=== PATIENT | female | born 1975 | race Two or more races ===

== ENCOUNTER 2019-03-24 17:02 | Emergency (ER) | payer MEDICAID ==
[~2019-03-24] VITALS: Ht 144.8 cm; Wt 68.0 kg
[2019-03-24 17:23] VITALS: BP 146/80
--- NOTE | 2019-03-24 17:25 | NUR ---
ED Nurse Note: Patient walked in to ER c/o left side of forehead skin abscess x 7 days. Pt denies injury or trauma. Pt rates pain at 7/10. Patient presen SAGAR sales x4, VSS at this time.
--- NOTE | 2019-03-24 17:28 | Emergency Room Report ---
History of Present Illness General Chief Complaint: Skin Rash/Abscess Source: Patient Present Illness HPI 44-year-old female with no significant past medical history here complaining of having few cysts on scalp for few days. Complains of pain in the side rating a 5-10. Denies any pus drainage. History of prediabetes uncontrolled. Denies any fall or injury. Multiple folliculitis noted on scalp and forehead. Denies fever and chills, nausea vomiting. Has not taken medication for symptom relief. Denies at this time. Allergies: Coded Allergies: No Known Allergies (Unverified , 03/24/19) Patient History Past Medical History: see triage record Past Surgical History: none Pertinent Family History: none Last Menstrual Period: 03/21/2019 Now: No Immunizations: UTD Reviewed Nursing Documentation: PMH: Agreed; PSxH: Agreed Nursing Documentation-PMH Past Medical History: No Stated History Review of Systems All Other Systems: negative except mentioned in HPI Physical Exam Vital Signs Date Time Temp Pulse Resp B/P (MAP) Pulse Ox O2 Delivery O2 Flow Rate FiO2 03/24/19 17:11 97.7 88 15 146/80 (102) 100 Room Air Sp02 EP Interpretation: reviewed, normal General Appearance: no apparent distress, alert, GCS 15, non-toxic Head: normocephalic, atraumatic Eyes: bilateral eye normal inspection, bilateral eye PERRL ENT: hearing grossly normal, normal pharynx, no angioedema, normal voice Neck: full range of motion, supple/symm/no masses Respiratory: chest non-tender, lungs clear, normal breath sounds, no rhonchi, no retraction, no wheezing, speaking full sentences Cardiovascular #1: normal inspection, no edema, no murmur Gastrointestinal: non tender, soft, no mass, no peritonitis, no bruit Rectal: deferred Genitourinary: no CVA tenderness Musculoskeletal: back normal Neurologic: alert, motor strength/tone normal, oriented x3, sensory intact, responsive, speech normal Psychiatric: judgement/insight normal, memory normal, mood/affect normal, no suicidal/homicidal ideation Skin: other - Multiple folliculitis scalp and forehead Lymphatic: normal inspection, no adenopathy Medical Decision Making PA Attestation All diagnoses and treatment plans were reviewed and discussed with my supervising physician Dr. Acosta Diagnostic Impression: Primary Impression: Folliculitis ER Course 44-year-old female with no significant past medical history here complaining of having few cysts on scalp for few days. Complains of pain in the side rating a 5-10. Denies any pus drainage. History of prediabetes uncontrolled. Denies any fall or injury. Multiple folliculitis noted on scalp and forehead. Denies fever and chills, nausea vomiting. Has not taken medication for symptom relief. Denies at this time. Ddx considered but are not limited to : Cellulitis, folliculitis, superficial infection, abscess Vital signs: are WNL, pt. is afebrile H&PE are most consistent with: folliculitis with no abscess formation ORDERS: Keflex, Motrin ED INTERVENTIONS: None required at this time. DISCHARGE: At this time pt. is stable for d/c to home. Will provide printed patient care instructions, and any necessary prescriptions. Care plan and follow up instructions have been discussed with the patient prior to discharge. No I&D needed as patient has not developed any abscess. Follow-up with primary care provider, take medication as directed, worsening symptoms return to emergency room. Patient reports that she often shaves the areas that she gets a folliculitis advised her not to do so. Last Vital Signs Date Time Temp Pulse Resp B/P (MAP) Pulse Ox O2 Delivery O2 Flow Rate FiO2 03/24/19 17:11 97.7 88 15 146/80 (102) 100 Room Air Disposition: HOME, SELF-CARE Condition: Stable Scripts Ibuprofen* (MOTRIN*) 600 Mg Tablet 600 MG ORAL Q8H PRN for For Pain, #30 TAB 0 Refills Prov: Yamileth Khan 03/24/19 Cephalexin* (KEFLEX*) 500 Mg Capsule 500 MG ORAL EVERY 6 HOURS for 7 Days, #28 CAP Prov: Yamileth Khan 03/24/19 Patient Instructions: Folliculitis Additional Instructions: Take medication as directed, follow-up with your primary care provider, may need to be sent to a manager transfer to be requested by your primary care provider. If worsening symptoms return to the emergency room Yamileth Khan Mar 24, 2019 17:28
[2019-03-24] MEDS ORDERED: CEPHALEXIN500 MG ORAL (17:30)
[2019-03-24] MEDS ORDERED: IBUPROFEN600 MG ORAL (17:30)
[2019-03-24 17:34] VITALS: BP 146/80
--- NOTE | 2019-03-24 17:36 | NUR ---
ED Nurse Note: Pt cleared by health care Provider for discharge. DC instructions/prescription was given and explained to pt and verbalized understanding of teachings. All medical deviecs such as ID band removed. Pt is AAO x4, ambulatory and left with all personal belongings.
== END 2019-03-24 17:34 | disposition home or self-care (01) ==
LOC: EMR 17:28
DX: L73.9 Follicular disorder, unspecified (principal)
CPT/HCPCS: 99282

== ENCOUNTER 2019-04-20 06:16 | Inpatient (IN) | payer MEDICAID ==
[~2019-04-20] VITALS: Ht 149.9 cm; Wt 71.7 kg
[~2019-04-20 06:16] MED LIST: CEPHALEXIN500 MG ORAL; IBUPROFEN600 MG ORAL
--- NOTE | 2019-04-20 06:54 | NUR ---
ED Nurse Note: Walk-in Patient with complaints of fever x 3 days and body pain. Patient administered tylenol. Will continue to monitor.
--- NOTE | 2019-04-20 06:57 | NUR ---
HAND-OFF: Report given to Mendoza SUACEDA.
--- NOTE | 2019-04-20 07:03 | Emergency Room Report ---
History of Present Illness General Chief Complaint: Fever Source: Patient Present Illness HPI Patient presents with complaints of sensation of fever Ongoing for the past 1 day patient also has body ache diffusely Denies any headache denies any posterior neck pain denies any sore throat denies any chest pain denies any vomiting or diarrhea denies any recent travel Patient has not taken any medications as of yet COVID-19 risk:Travel to affect: No Has patient experienced cooper: No Allergies: Coded Allergies: No Known Allergies (Unverified , 04/20/19) Patient History Past Medical History: see triage record Reviewed Nursing Documentation: PMH: Agreed; PSxH: Agreed Nursing Documentation-PMH Past Medical History: No Stated History Review of Systems All Other Systems: negative except mentioned in HPI Physical Exam Vital Signs Date Time Temp Pulse Resp B/P (MAP) Pulse Ox O2 Delivery O2 Flow Rate FiO2 04/20/19 06:33 100.8 120 16 125/60 (81) 95 Room Air Sp02 EP Interpretation: reviewed, normal General Appearance: well appearing, no apparent distress Head: normocephalic, atraumatic Eyes: bilateral eye PERRL, bilateral eye EOMI ENT: hearing grossly normal, normal pharynx, TMs + canals normal, uvula midline Neck: full range of motion, supple, no meningismus, no bony tend Respiratory: lungs clear, normal breath sounds, no rhonchi, no respiratory distress, no retraction, no accessory muscle use Cardiovascular #1: normal peripheral pulses, regular rate, rhythm, no edema, no gallop, no JVD, no murmur Gastrointestinal: normal bowel sounds, non tender, soft, no mass, no organomegaly, non-distended, no guarding, no hernia, no pulsatile mass, no rebound Genitourinary: no CVA tenderness Musculoskeletal: normal inspection Neurologic: motor strength/tone normal, fagoter III-XII nml as tested, oriented x3 , sensory intact, responsive Psychiatric: mood/affect normal Skin: no rash Lymphatic: normal inspection, no adenopathy Medical Decision Making Diagnostic Impression: Primary Impression: Pyelonephritis ER Course Multiple differentials including but not limited to pyelonephritis cholecystitis meningitis,, entertained Patient's white blood cell count is significantly elevated patient initially Denies any dysuria or frequency however urine sample shows significant amount of white blood cells CT imaging also confirms evidence of pyelonephritis patient receiving IV hydration antibiotics and admission for further care Labs Test 04/20/19 07:25 04/20/19 08:27 04/20/19 08:40 White Blood Count 26.5 K/UL (4.8-10.8) Red Blood Count 4.46 M/UL (4.20-5.40) Hemoglobin 7.4 G/DL (12.0-16.0) Hematocrit 25.3 % (37.0-47.0) Mean Corpuscular Volume 57 FL (80-99) Mean Corpuscular Hemoglobin 16.6 PG (27.0-31.0) Mean Corpuscular Hemoglobin Concent 29.2 G/DL (32.0-36.0) Red Cell Distribution Width 15.4 % (11.6-14.8) Platelet Count 328 K/UL (150-450) Mean Platelet Volume 6.0 FL (6.5-10.1) Neutrophils (%) (Auto) % (45.0-75.0) Lymphocytes (%) (Auto) % (20.0-45.0) Monocytes (%) (Auto) % (1.0-10.0) Eosinophils (%) (Auto) % (0.0-3.0) Basophils (%) (Auto) % (0.0-2.0) Differential Total Cells Counted 100 Neutrophils % (Manual) 86 % (45-75) Lymphocytes % (Manual) 9 % (20-45) Monocytes % (Manual) 5 % (1-10) Eosinophils % (Manual) 0 % (0-3) Basophils % (Manual) 0 % (0-2) Band Neutrophils 0 % (0-8) Platelet Estimate Adequate Platelet Morphology Normal Polychromasia 1+ Hypochromasia 2+ Anisocytosis 1+ Microcytosis 2+ Sodium Level 136 MMOL/L (136-145) Potassium Level 3.2 MMOL/L (3.5-5.1) Chloride Level 101 MMOL/L (98-107) Carbon Dioxide Level 24 MMOL/L (21-32) Anion Gap 11 mmol/L (5-15) Blood Urea Nitrogen 7 mg/dL (7-18) Creatinine 0.7 MG/DL (0.55-1.30) Estimat Glomerular Filtration Rate > 60 mL/min (>60) Glucose Level 214 MG/DL (74-106) Calcium Level 8.1 MG/DL (8.5-10.1) Total Bilirubin 0.4 MG/DL (0.2-1.0) Aspartate Amino Transf (AST/SGOT) 19 U/L (15-37) Alanine Aminotransferase (ALT/SGPT) 23 U/L (12-78) Alkaline Phosphatase 117 U/L (46-116) Total Protein 7.4 G/DL (6.4-8.2) Albumin 3.0 G/DL (3.4-5.0) Globulin 4.4 g/dL Albumin/Globulin Ratio 0.7 (1.0-2.7) Urine Color Yellow Urine Appearance Slightly cloudy Urine pH 6 (4.5-8.0) Urine Specific [place] 1.015 (1.005-1.035) Urine Protein 3+ (NEGATIVE) Urine Glucose (UA) 1+ (NEGATIVE) Urine Ketones 4+ (NEGATIVE) Urine Blood 5+ (NEGATIVE) Urine Nitrite Positive (NEGATIVE) Urine Bilirubin Negative (NEGATIVE) Urine Urobilinogen 1 MG/DL (0.0-1.0) Urine Leukocyte Esterase 3+ (NEGATIVE) Urine RBC 5-10 /HPF (0 - 2) Urine WBC Tntc /HPF (0 - 2) Urine Squamous Epithelial Cells Few /LPF (NONE/OCC) Urine Bacteria Moderate /HPF (NONE) Urine Opiates Screen Negative (NEGATIVE) Urine Barbiturates Screen Negative (NEGATIVE) Phencyclidine (PCP) Screen Negative (NEGATIVE) Urine Amphetamines Screen Negative (NEGATIVE) Urine Benzodiazepines Screen Negative (NEGATIVE) Urine Cocaine Screen Negative (NEGATIVE) Urine Marijuana (THC) Screen Negative (NEGATIVE) Lactic Acid Level 1.00 mmol/L (0.4-2.0) Troponin I 0.000 ng/mL (0.000-0.056) Rhythm Strip Diag. Results EP Interpretation: yes Rate: 110 Rhythm: no PVC's, no ectopy, other - Sinus tack Chest X-Ray Diagnostic Results Chest X-Ray Diagnostic Results : Chest X-Ray Ordered: Yes # of Views/Limited/Complete: 1 View Indication: Chest Pain EP Interpretation: Yes Interpretation: no consolidation, no effusion, no pneumothorax Impression: No acute disease Electronically Signed by: Ketan David, DO CT/MRI/US Diagnostic Results CT/MRI/US Diagnostic Results : Impression CT abdomen pelvisIMPRESSION: Abnormal left kidney. Pyelonephritis suspected. Correlate clinically. Minimal left basal atelectasis. Last Vital Signs Date Time Temp Pulse Resp B/P (MAP) Pulse Ox O2 Delivery O2 Flow Rate FiO2 04/20/19 06:33 100.8 120 16 125/60 (81) 95 Room Air Status: improved Disposition: ADMITTED INPATIENT Condition: Serious Referrals: NOT CHOSEN IPA/,REFERRING (PCP) Ketan David DO Apr 20, 2019 07:03
[2019-04-20 07:10] VITALS: BP 125/60
[2019-04-20 07:38] LABS: HEMATOCRIT 25.3 % (37.0-47.0); HEMOGLOBIN 7.4 G/DL (12.0-16.0); MEAN CORPUSCULAR VOLUME 57 FL (80-99); PLATELET COUNT 328 K/UL (150-450); RED BLOOD COUNT 4.46 M/UL (4.20-5.40); RED CELL DISTRIBUTION WIDTH 15.4 % (11.6-14.8)
[2019-04-20 07:46] LABS: WHITE BLOOD COUNT 26.5 K/UL (4.8-10.8)
[2019-04-20 07:50] LABS: ANION GAP 11 mmol/L (5-15); BLOOD UREA NITROGEN 7 mg/dL (7-18); CALCIUM 8.1 MG/DL (8.5-10.1); CARBON DIOXIDE 24 MMOL/L (21-32); CHLORIDE 101 MMOL/L (98-107); CREATININE 0.7 MG/DL (0.55-1.30); POTASSIUM 3.2 MMOL/L (3.5-5.1); SODIUM 136 MMOL/L (136-145)
[2019-04-20 07:55] LABS: ALANINE AMINOTRANSFERASE 23 U/L (12-78); ALBUMIN/GLOBULIN RATIO 0.7 (1.0-2.7); ALKALINE PHOSPHATASE 117 U/L (46-116); ASPARTATE AMINO TRANSFERASE 19 U/L (15-37); BILIRUBIN,TOTAL 0.4 MG/DL (0.2-1.0)
[2019-04-20] MEDS ORDERED: Omnipaque-300 100ml vial INJ PRN (08:00)
[2019-04-20] MEDS ORDERED: Sodium Chloride 2,200 ML IVLG ONE (08:00)
--- NOTE | 2019-04-20 08:20 | NUR ---
ED Nurse Note: Patient taken to CT
--- NOTE | 2019-04-20 08:20 | NUR ---
Sherine nixon in EDM - 04/20/19 at 0911 by MATEUS ED Nurse Note: Patient taken to Xray
[2019-04-20 08:37] LABS: APPEARANCE,URINE SLIGHTLY CLOUDY; BILIRUBIN, URINE NEGATIVE (NEGATIVE); GLUCOSE, URINE (UA) 1+ (NEGATIVE); KETONES,URINE 4+ (NEGATIVE); LEUKOCYTE ESTERASE ,URINE 3+ (NEGATIVE); NITRITE,URINE POSITIVE (NEGATIVE); PH,URINE 6 (4.5-8.0); PROTEIN,URINE 3+ (NEGATIVE); UROBILINOGEN,URINE 1 MG/DL (0.0-1.0)
[2019-04-20 08:45] LABS: COLOR,URINE YELLOW
--- NOTE | 2019-04-20 08:45 | NUR ---
ED Nurse Note: Blood sent to lab, patient resting in bed, at bedside.
--- NOTE | 2019-04-20 08:50 | NUR ---
ED Nurse Note: Patient returned from CT
[2019-04-20] MEDS ORDERED: cefTRIAXone 1 GM in NS 55 ML IVPB ONE (09:15)
[2019-04-20 09:30] VITALS: BP 123/61
--- NOTE | 2019-04-20 09:31 | Diagnostic Imaging Report ---
INDICATION: Abdominal pain TECHNIQUE: Continuous helical transaxial imaging of the abdomen and pelvis was obtained from the lung bases to the pubic symphysis during intravenous contrast administration. Coronal 2-D reformats were also obtained. Study obtained in a Siemens sensation [address] Automatic Exposure Control was utilized. Total Dose length Product (DLP): 619.[address] Dose Index Volume (CTDIvol): 12 mGy COMPARISON: None FINDINGS: Lungs: There is minimal left posterior basal atelectasis.. Liver: Unremarkable Gallbladder/biliary system: No gallstones are identified. There is no evidence of intrahepatic or extrahepatic biliary ductal dilatation. Spleen: Unremarkable Pancreas: Unremarkable Kidneys/Bladder: There is left perinephric stranding and slight ill-definition of the left kidney parameter. There is no abscess but findings are likely due to pyelonephritis. There is no evidence of hydronephrosis or obstruction. There is no stone identified within the kidney or collecting system. The urinary bladder is completely nondistended. Right kidney is unremarkable.. Adrenal glands: Unremarkable Aorta/IVC: There is no aortic aneurysm. There is a retroaortic left renal vein noted. Bowel: Appendix is normal. Bowel gas pattern is normal. There is no evidence of bowel obstruction. Peritoneum: There is no free fluid. Bones: Vacuum phenomena and, loss of height of the L5-S1 disc noted with vertebral endplate and facet arthropathy. IMPRESSION: Abnormal left kidney. Pyelonephritis suspected. Correlate clinically. Minimal left basal atelectasis. The CT scanner at [facility] is accredited by the [employer] and the scans are performed using dose optimization techniques as appropriate to a performed exam including Automatic Exposure control.
[2019-04-20 10:20] LABS: CKMB < 0.5 NG/ML (0.0-3.6); CREATINE KINASE 28 U/L (26-308)
--- NOTE | 2019-04-20 10:22 | History and Physical ---
History of Present Illness General Date patient seen: Apr 20, 2019 Time patient seen: 10:10 Reason for Hospitalization: Pyelonephritis, sepsis Present Illness HPI 44 year old woman with obesity otherwise healthy who comes in with 3 days of subjective fever and low back pain. No chest pain, cough, dyspnea, sore throat. Deneis hematuria or dysuria. In ED noted to have fever 100.8 and leukocytosis 26K with left shift. CT A/P suggestive of pyelonephritis. Given ceftriaxone and referred for admission FHx: No premature CAD SHx: No alcohol or tobacco Allergies: Coded Allergies: No Known Allergies (Unverified , 04/20/19) Medication History Scheduled Cephalexin* (Keflex*), 500 MG ORAL EVERY 6 HOURS Scheduled PRN Ibuprofen* (Motrin*), 600 MG ORAL Q8H PRN for For Pain Patient History Healthcare decision maker Resuscitation status Advanced Directive on File Review of Systems Constitutional: Reports: fever Eye: Denies: blurred vision ENT: Denies: nose congestion, throat pain Respiratory: Denies: cough, orthopnea, shortness of breath Cardiovascular: Denies: chest pain, edema, palpitations Gastrointestinal: Denies: abdominal pain, constipation, diarrhea Genitourinary: Denies: dysuria, frequency, hematuria Musculoskeletal: Reports: back pain; Denies: joint pain Skin: Denies: rash, change in color Neurological: Denies: headache Endocrine: Denies: excessive sweating Physical Exam General Appearance: no apparent distress, alert HEENT: atraumatic, anicteric, mucous membranes moist Neck: normal alignment, supple, normal inspection Respiratory/Chest: lungs clear, normal breath sounds, no respiratory distress Cardiovascular/Chest: normal rate, regular rhythm Abdomen: non tender, soft Genitourinary/Rectal: other - Right CVAT Extremities: non-tender, normal inspection Neurologic: ship officer II-XII grossly normal, no motor/sensory deficits, alert, oriented x 3 Last 24 Hour Vital Signs Date Time Temp Pulse Resp B/P (MAP) Pulse Ox O2 Delivery O2 Flow Rate FiO2 04/20/19 07:21 100.8 04/20/19 07:10 100.8 108 16 125/60 95 Room Air 04/20/19 07:10 108 16 Room Air 04/20/19 06:33 100.8 120 16 125/60 (81) 95 Room Air Laboratory Tests Test 04/20/19 07:25 04/20/19 08:27 04/20/19 08:40 White Blood Count 26.5 K/UL (4.8-10.8) *H Red Blood Count 4.46 M/UL (4.20-5.40) Hemoglobin 7.4 G/DL (12.0-16.0) L Hematocrit 25.3 % (37.0-47.0) L Mean Corpuscular Volume 57 FL (80-99) L Mean Corpuscular Hemoglobin 16.6 PG (27.0-31.0) L Mean Corpuscular Hemoglobin Concent 29.2 G/DL (32.0-36.0) L Red Cell Distribution Width 15.4 % (11.6-14.8) H Platelet Count 328 K/UL (150-450) Mean Platelet Volume 6.0 FL (6.5-10.1) L Neutrophils (%) (Auto) % (45.0-75.0) Lymphocytes (%) (Auto) % (20.0-45.0) Monocytes (%) (Auto) % (1.0-10.0) Eosinophils (%) (Auto) % (0.0-3.0) Basophils (%) (Auto) % (0.0-2.0) Differential Total Cells Counted 100 Neutrophils % (Manual) 86 % (45-75) H Lymphocytes % (Manual) 9 % (20-45) L Monocytes % (Manual) 5 % (1-10) Eosinophils % (Manual) 0 % (0-3) Basophils % (Manual) 0 % (0-2) Band Neutrophils 0 % (0-8) Platelet Estimate Adequate Platelet Morphology Normal Polychromasia 1+ Hypochromasia 2+ Anisocytosis 1+ Microcytosis 2+ Sodium Level 136 MMOL/L (136-145) Potassium Level 3.2 MMOL/L (3.5-5.1) L Chloride Level 101 MMOL/L (98-107) Carbon Dioxide Level 24 MMOL/L (21-32) Anion Gap 11 mmol/L (5-15) Blood Urea Nitrogen 7 mg/dL (7-18) Creatinine 0.7 MG/DL (0.55-1.30) Estimat Glomerular Filtration Rate > 60 mL/min (>60) Glucose Level 214 MG/DL (74-106) H Calcium Level 8.1 MG/DL (8.5-10.1) L Total Bilirubin 0.4 MG/DL (0.2-1.0) Aspartate Amino Transf (AST/SGOT) 19 U/L (15-37) Alanine Aminotransferase (ALT/SGPT) 23 U/L (12-78) Alkaline Phosphatase 117 U/L (46-116) H Total Protein 7.4 G/DL (6.4-8.2) Albumin 3.0 G/DL (3.4-5.0) L Globulin 4.4 g/dL Albumin/Globulin Ratio 0.7 (1.0-2.7) L Urine Color Yellow Urine Appearance Slightly cloudy Urine pH 6 (4.5-8.0) Urine Specific [place] 1.015 (1.005-1.035) Urine Protein 3+ (NEGATIVE) H Urine Glucose (UA) 1+ (NEGATIVE) H Urine Ketones 4+ (NEGATIVE) H Urine Blood 5+ (NEGATIVE) H Urine Nitrite Positive (NEGATIVE) H Urine Bilirubin Negative (NEGATIVE) Urine Urobilinogen 1 MG/DL (0.0-1.0) H Urine Leukocyte Esterase 3+ (NEGATIVE) H Urine RBC 5-10 /HPF (0 - 2) H Urine WBC Tntc /HPF (0 - 2) H Urine Squamous Epithelial Cells Few /LPF (NONE/OCC) Urine Bacteria Moderate /HPF (NONE) H Urine Opiates Screen Negative (NEGATIVE) Urine Barbiturates Screen Negative (NEGATIVE) Phencyclidine (PCP) Screen Negative (NEGATIVE) Urine Amphetamines Screen Negative (NEGATIVE) Urine Benzodiazepines Screen Negative (NEGATIVE) Urine Cocaine Screen Negative (NEGATIVE) Urine Marijuana (THC) Screen Negative (NEGATIVE) Lactic Acid Level 1.00 mmol/L (0.4-2.0) Total Creatine Kinase Pending Creatine Kinase MB Pending Troponin I 0.000 ng/mL (0.000-0.056) Lipase Pending Height (Feet): 4 Height (Inches): 11.00 Weight (Pounds): 158 Medications Current Medications Medications (Trade) Dose Ordered Sig/Aguilar Route PRN Reason Start Time Stop Time Status Last Admin Dose Admin Iohexol (OMNIPAQUE-300 100ml) 100 ml NOW PRN INJ Radiology Procedure 04/20/19 08:00 04/22/19 07:54 Assessment/Plan Assessment/Plan: 44 year old woman with obesity who presented with 3 days of fever and back pain #Sepsis #Right sided pyelonephritis -admit to medical service -start ceftriaxone 1 g q24h -Tylenol prn for fever -IV Dilaudid prn for pain -follow up blood and urine cultures -repeat CBC in AM #Obesity I spent 70 minutes on this patient's case, and >50% was dedicated to counseling and/or care coordination. Serge Fitzpatrick MD Apr 20, 2019 10:22
[2019-04-20] MEDS ORDERED: HYDROmorphone 1mg/ml Carpuject IVP PRN (10:30)
[2019-04-20] MEDS ORDERED: Hydromorphone 0.5mg/0.5ml inj IVP PRN (10:30)
[2019-04-20] MEDS ORDERED: DiphenhydrAMINE 25mg Tab ORAL PRN (10:30)
[2019-04-20] MEDS ORDERED: Mylanta II UD 30ml ORAL PRN (10:30)
[2019-04-20 11:30] VITALS: BP 124/65
--- NOTE | 2019-04-20 11:30 | NUR ---
ED Nurse Note: Report given to Ayala SAUCEDA
--- NOTE | 2019-04-20 11:39 | Diagnostic Imaging Report ---
Indication: Dyspnea Comparison: None A single view chest radiograph was obtained. Findings: Cardiomediastinal appearance is within normal limits for age. The lungs are clear. Pulmonary vascularity is appropriate. The diaphragmatic contour is smooth and costophrenic angles are sharp. No pleural effusions are identified. The bones are unremarkable. Impression: No acute findings
--- NOTE | 2019-04-20 11:45 | NUR ---
NURSE NOTES: Patient received from ER at 1145, via gurney to 319-1, in stable condition. Patient AOx4, Sami speaking female, calm, no distress on RA. Non-productive cough noted. LAC heplock intact, blood in tubing, will flush and start ordered IVF. Oriented patient to room and call light for safety. Spouse at bedside. Belongings reviewed and signed. Bed in lowest position, call light in reach, will continue to monitor.
[2019-04-20 12:00] VITALS: BP 145/97
--- NOTE | 2019-04-20 14:15 | NUR ---
NURSE NOTES: Messaged left for Dr. Maynard, regarding K3.2. Eileen ROSA notified of awaiting process control board operator back.
[2019-04-20 16:00] VITALS: BP 140/68
--- NOTE | 2019-04-20 18:00 | NUR ---
NURSE NOTES: Dr. Desouza notified of temperature 102.9. (see vitals for all temperature readings) Tylenol administered x2, see eMAR. Encouraged patient to increase PO fluid intake. IVF infusing as ordered. No NV. Ice pack to head and chest applied. Will continue to monitor.
--- NOTE | 2019-04-20 19:45 | NUR ---
HAND-OFF: Report given to Jorden SAUCEDA, rounds made. Endorsed still awaiting honing machine operator production back from Dr. Maynard regarding K3.2. Eileen ROSA and Simon ROSA aware as well.
--- NOTE | 2019-04-20 19:47 | NUR ---
NURSE NOTES: Received report from Rossy SAUCEDA. Rounding is done. Patient is a/o x4, in bed, and able to known her need. is at bedside. Patient c/o pain 5/10, and will give medication as ordered. Breathing is even and unlabored. IV site is intact and iv fluid is running. Bed is on alarm, locked, and lowest position. Call light within reach. Will continue to monitor.
[2019-04-20 20:00] VITALS: BP 128/68
[2019-04-20] MEDS ORDERED: Amikacin Rx to dose MISC PRN (20:00)
--- NOTE | 2019-04-20 20:08 | Infectious Diseases Prog Note ---
Assessment/Plan Assessment/Plan Full consult dictated: A) 1) uti/pyelonephritis 2) sepsis, fevers, leukocytosis 3) obesity 4) allergies - nkda P) 1) zosyn and amikacin 2) check cultures 3) monitor labs and temps 4) will f/u 5) thank you Subjective Allergies: Coded Allergies: No Known Allergies (Unverified , 04/20/19) Objective Vital Signs Last 24 Hour Vital Signs Date Time Temp Pulse Resp B/P (MAP) Pulse Ox O2 Delivery O2 Flow Rate FiO2 04/20/19 18:07 102.9 04/20/19 18:00 102.9 04/20/19 17:15 102.5 04/20/19 16:00 102.2 100 24 140/68 (92) 94 04/20/19 13:15 102.8 04/20/19 12:02 Room Air 04/20/19 12:00 101.2 109 22 145/97 (113) 04/20/19 11:40 99.6 99 16 124/65 97 Room Air 04/20/19 11:30 99.6 99 16 124/65 97 Room Air 04/20/19 09:30 100.1 104 17 123/61 98 Room Air 04/20/19 07:21 100.8 04/20/19 07:10 100.8 108 16 125/60 95 Room Air 04/20/19 07:10 108 16 Room Air 04/20/19 06:33 100.8 120 16 125/60 (81) 95 Room Air Height (Feet): 4 Height (Inches): 11.00 Weight (Pounds): 158 Laboratory Tests Test 04/20/19 07:25 04/20/19 08:27 04/20/19 08:40 White Blood Count 26.5 K/UL (4.8-10.8) *H Red Blood Count 4.46 M/UL (4.20-5.40) Hemoglobin 7.4 G/DL (12.0-16.0) L Hematocrit 25.3 % (37.0-47.0) L Mean Corpuscular Volume 57 FL (80-99) L Mean Corpuscular Hemoglobin 16.6 PG (27.0-31.0) L Mean Corpuscular Hemoglobin Concent 29.2 G/DL (32.0-36.0) L Red Cell Distribution Width 15.4 % (11.6-14.8) H Platelet Count 328 K/UL (150-450) Mean Platelet Volume 6.0 FL (6.5-10.1) L Neutrophils (%) (Auto) % (45.0-75.0) Lymphocytes (%) (Auto) % (20.0-45.0) Monocytes (%) (Auto) % (1.0-10.0) Eosinophils (%) (Auto) % (0.0-3.0) Basophils (%) (Auto) % (0.0-2.0) Differential Total Cells Counted 100 Neutrophils % (Manual) 86 % (45-75) H Lymphocytes % (Manual) 9 % (20-45) L Monocytes % (Manual) 5 % (1-10) Eosinophils % (Manual) 0 % (0-3) Basophils % (Manual) 0 % (0-2) Band Neutrophils 0 % (0-8) Platelet Estimate Adequate Platelet Morphology Normal Polychromasia 1+ Hypochromasia 2+ Anisocytosis 1+ Microcytosis 2+ Sodium Level 136 MMOL/L (136-145) Potassium Level 3.2 MMOL/L (3.5-5.1) L Chloride Level 101 MMOL/L (98-107) Carbon Dioxide Level 24 MMOL/L (21-32) Anion Gap 11 mmol/L (5-15) Blood Urea Nitrogen 7 mg/dL (7-18) Creatinine 0.7 MG/DL (0.55-1.30) Estimat Glomerular Filtration Rate > 60 mL/min (>60) Glucose Level 214 MG/DL (74-106) H Calcium Level 8.1 MG/DL (8.5-10.1) L Total Bilirubin 0.4 MG/DL (0.2-1.0) Aspartate Amino Transf (AST/SGOT) 19 U/L (15-37) Alanine Aminotransferase (ALT/SGPT) 23 U/L (12-78) Alkaline Phosphatase 117 U/L (46-116) H Total Protein 7.4 G/DL (6.4-8.2) Albumin 3.0 G/DL (3.4-5.0) L Globulin 4.4 g/dL Albumin/Globulin Ratio 0.7 (1.0-2.7) L Urine Color Yellow Urine Appearance Slightly cloudy Urine pH 6 (4.5-8.0) Urine Specific [place] 1.015 (1.005-1.035) Urine Protein 3+ (NEGATIVE) H Urine Glucose (UA) 1+ (NEGATIVE) H Urine Ketones 4+ (NEGATIVE) H Urine Blood 5+ (NEGATIVE) H Urine Nitrite Positive (NEGATIVE) H Urine Bilirubin Negative (NEGATIVE) Urine Urobilinogen 1 MG/DL (0.0-1.0) H Urine Leukocyte Esterase 3+ (NEGATIVE) H Urine RBC 5-10 /HPF (0 - 2) H Urine WBC Tntc /HPF (0 - 2) H Urine Squamous Epithelial Cells Few /LPF (NONE/OCC) Urine Bacteria Moderate /HPF (NONE) H Urine Opiates Screen Negative (NEGATIVE) Urine Barbiturates Screen Negative (NEGATIVE) Phencyclidine (PCP) Screen Negative (NEGATIVE) Urine Amphetamines Screen Negative (NEGATIVE) Urine Benzodiazepines Screen Negative (NEGATIVE) Urine Cocaine Screen Negative (NEGATIVE) Urine Marijuana (THC) Screen Negative (NEGATIVE) Lactic Acid Level 1.00 mmol/L (0.4-2.0) Total Creatine Kinase 28 U/L (26-308) Creatine Kinase MB < 0.5 NG/ML (0.0-3.6) Creatine Kinase MB Relative Index Troponin I 0.000 ng/mL (0.000-0.056) Lipase 62 U/L (73-393) L Current Medications Medications (Trade) Dose Ordered Sig/Aguilar Route PRN Reason Start Time Stop Time Status Last Admin Dose Admin Acetaminophen (Tylenol) 650 mg Q4H PRN ORAL fever 04/20/19 10:30 05/20/19 10:29 04/20/19 17:30 Al Hydroxide/Mg Hydroxide (Mylanta II) 30 ml Q6H PRN ORAL dyspepsia 04/20/19 10:30 05/20/19 10:29 Ceftriaxone Sodium 1 gm/ Sodium Chloride 55 ml @ 110 mls/hr Q24HRS IVPB 04/21/19 10:00 04/28/19 09:59 Dextrose (Dextrose 50%) 25 ml Q30M PRN IV Hypoglycemia 04/20/19 10:30 05/20/19 10:29 Dextrose (Dextrose 50%) 50 ml Q30M PRN IV Hypoglycemia 04/20/19 10:30 05/20/19 10:29 Diphenhydramine HCl (Benadryl) 25 mg Q6H PRN ORAL Itching/Pruritis 04/20/19 10:30 05/20/19 10:29 Docusate Sodium (Colace) 100 mg EVERY 12 HOURS ORAL 04/20/19 21:00 05/20/19 20:59 Heparin Sodium (Porcine) (Heparin 5000 units/ml) 5,000 units EVERY 12 HOURS SUBQ 04/20/19 21:00 06/04/19 20:59 Hydromorphone HCl (Dilaudid) 0.5 mg Q4H PRN IVP Moderate Pain (Pain Scale 4-6) 04/20/19 10:30 04/27/19 10:29 Hydromorphone HCl (Dilaudid) 1 mg Q4H PRN IVP Severe Pain (Pain Scale 7-10) 04/20/19 10:30 04/27/19 10:29 Iohexol (OMNIPAQUE-300 100ml) 100 ml NOW PRN INJ Radiology Procedure 04/20/19 08:00 04/22/19 07:54 Ondansetron HCl (Zofran) 4 mg Q6H PRN IVP Nausea & Vomiting 04/20/19 10:30 05/20/19 10:29 Sodium Chloride 1,000 ml @ 100 mls/hr Q10H IVLG 04/20/19 11:28 05/20/19 11:27 04/20/19 12:21 Mauro Cortez MD Apr 20, 2019 20:08
--- NOTE | 2019-04-20 20:20 | NUR ---
NURSE NOTES: Called to Dr. Farley and left message to officer regarding abnormal lab results.
[2019-04-20] MEDS: Docusate 100mg cap ORAL SCH (20:56)
[2019-04-20] MEDS: Heparin 5000 units/ml inj SUBQ SCH (20:58)
--- NOTE | 2019-04-20 21:00 | Consultation ---
DATE OF CONSULTATION: 04/20/2019 INFECTIOUS DISEASES CONSULTATION CONSULTING PHYSICIAN: Mauro Cortez M.D. ATTENDING PHYSICIAN: Essie Farley M.D. REFERRING PHYSICIAN: Serge Womack M.D. REASON FOR CONSULTATION: Urinary tract infection/pyelonephritis, sepsis, fevers, leukocytosis. CHIEF COMPLAINT: The patient's chief complaint coming into the hospital is anemia, leukocytosis. HISTORY OF PRESENT ILLNESS: This is a very pleasant 44-year-old female who is non-Bulgarian speaking. The patient presents to [facility] and is febrile up to 102.9. The patient has urinary tract infection/pyelonephritis. CT scan is consistent with perinephric stranding. The patient has elevated white count, fevers, SIRS criteria, and sepsis. Infectious Diseases consultation was requested. The patient will be placed on Zosyn and amikacin. Cultures are pending. REVIEW OF SYSTEMS: The patient has no central line. She has no Maya. Limited communication.HEAD AND NECK: No head pain or neck pain . CARDIAC: No chest pain. GASTROINTESTINAL: No nausea, vomiting, or diarrhea. GENITOURINARY: No Maya. No CVA tenderness. No nausea, vomiting, diarrhea, abdominal pain. PULMONARY: No shortness of breath, cough, and congestion. SKIN: No rash or itching. EXTREMITIES: No pain. NEUROLOGIC: No seizures. She did come in with fevers, low back pain, possible CVA tenderness. PAST MEDICAL HISTORY: The patient's past medical history includes the following. The patient has a past medical history of obesity. No diabetes or hypertension. No cardiac disease. ALLERGIES: No known drug allergies. No antibiotic allergies. SOCIAL HISTORY: Negative for smoking, alcohol, drug abuse. FAMILY HISTORY: Noncontributory. MEDICATIONS: Upon reviewing the MAR, the patient is on following medications. She is on Rocephin, I changed her to Zosyn and amikacin. She is on docusate hydromorphone. She is on Zofran, diphenhydramine, IV fluids. Outside medications noted and reconciliated. PHYSICAL EXAMINATION: VITAL SIGNS: T-max 102.9, pulse rate 100, respiratory rate 24, blood pressure 140/68, saturation 94%. Pulse rate has been as high as 120. GENERAL: Alert and responsive, in no acute distress. HEENT: Oral exam, no thrush. Eye exam, no icterus. Normocephalic. Neck is supple. No JVD. HEART: Regular. No gallop or murmur. Tachycardic. ABDOMEN: Soft. Positive bowel sounds. nontender. LUNGS: Clear bilaterally. No rhonchi or rales. SKIN: No rash. MUSCULOSKELETAL: No effusion. Legs are without cellulitis. PERIPHERAL VASCULAR: No cyanosis. GENITOURINARY: No Maya. She has some low back pain and possible CVA tenderness. LINE SITES: Without phlebitis. NEUROLOGIC: Intact. LABORATORY DATA: Drug screen is negative. Creatinine is 0.7. White count 26.5, hemoglobin 7.4. Urinalysis had positive nitrite, 3+ leukocyte esterase, too many to count white blood cells, moderate bacteria. IMAGING STUDIES: CT scan of the abdomen and pelvis showed left perinephric stranding. Chest x-ray showed no acute disease. Cultures are pending including blood and urine. ASSESSMENT AND PLAN: 1. The patient has urinary tract infection, complicated UTI and pyelonephritis based on CT scan findings of perinephric stranding. The patient is septic with fevers and leukocytosis. At this time, we will continue Zosyn and amikacin for ESBL coverage and MDI gram-negative coverage. Continue Zosyn and amikacin for complicated UTI/pyelonephritis, sepsis, fevers, leukocytosis. Check cultures, urine culture and blood cultures. Chest x-ray is negative. 2. Obesity. 3. No history diabetes or hypertension. 4. No known allergies. 5. Social history is negative. 6. Family History is noncontributory. 7. MAR was noted. 8. Case discussed with RN. 9. Continue treatment per primary consultants. 10. Orders were noted and entered. Mauro Cortez M.D. DR: Gayatri JOB#: [id number] CC:
[2019-04-20] MEDS: Amikacin 800 MG in NS 110 ML IV SCH (21:26)
[2019-04-21] VITALS (8 sets, daily range): BP systolic 107–172; BP diastolic 62–90
--- NOTE | 2019-04-21 07:25 | NUR ---
NURSE NOTES: Report received from Jorden SAUCEDA, rounds made. Patient AOx4, calm. Respirations even/unlabored on RA, no distress, no c/o of pain, SOB, NV. IV antibiotic Zosyn, infusing to LAC, site asymptomatic, no reaction noted. Appetite good, encouraged PO fluid intake. Call light in reach, bed in lowest position, will continue to monitor.
--- NOTE | 2019-04-21 07:26 | NUR ---
HAND-OFF: Report given to Rossy. Patient in stable condition.
[2019-04-21] MEDS: Heparin 5000 units/ml inj SUBQ SCH ×2 (09:10→20:49)
[2019-04-21] MEDS: Docusate 100mg cap ORAL SCH ×2 (09:11→20:47)
[2019-04-21 09:16] LABS: HEMATOCRIT 23.6 % (37.0-47.0); MEAN CORPUSCULAR VOLUME 57 FL (80-99); PLATELET COUNT 318 K/UL (150-450); RED BLOOD COUNT 4.14 M/UL (4.20-5.40); RED CELL DISTRIBUTION WIDTH 15.7 % (11.6-14.8); WHITE BLOOD COUNT 21.7 K/UL (4.8-10.8)
[2019-04-21 09:19] LABS: HEMOGLOBIN 6.7 G/DL (12.0-16.0)
--- NOTE | 2019-04-21 09:21 | NUR ---
NURSE NOTES: Received critical value for Hemoglobin 6.7, from Kim in Chemistry Department. Addendum: 04/21/19 at 1146 by Rossy Hewitt RN Josselyn ROSA, notified as well.
[2019-04-21 09:30] LABS: ANION GAP 12 mmol/L (5-15); BLOOD UREA NITROGEN 6 mg/dL (7-18); CARBON DIOXIDE 23 MMOL/L (21-32); CHLORIDE 100 MMOL/L (98-107); CREATININE 0.7 MG/DL (0.55-1.30); SODIUM 135 MMOL/L (136-145)
[2019-04-21] MEDS ORDERED: cefTRIAXone 1 GM in NS 55 ML IVPB SCH (10:00)
--- NOTE | 2019-04-21 10:00 | NUR ---
NURSE NOTES: Messaged left for Dr. Farley, regarding Hemoglobin 6.7, awaiting licensed nurse practitioner back. Josselyn wray.
--- NOTE | 2019-04-21 11:20 | NUR ---
NURSE NOTES: Message left for Dr. Farley (second attempt) at 1035. Received call back from Dr. Hernandez at 1040, notified of Hgb 6.7 (and yesterday 7.4) and blood glucose on AM labs, 333 (and yesterday 214). Orders received for Type and Cross one unit, transfuse one unit PRBCs. Patient updated with new orders. Patient guide for blood transfusion (in Salvadorean) provided, verbalized understanding. Blood consent signed.
--- NOTE | 2019-04-21 12:30 | NUR ---
NURSE NOTES: Dr. Hernandez notified of BP readings 147/74 and HR 105-110, no further orders.
--- NOTE | 2019-04-21 16:00 | NUR ---
NURSE NOTES: Blood transfusion started at 1442, pre vitals stable. Reassessed patient 15 mins after, no reaction, VSS. see vitals. Patient denies any SOB, rash, dizziness, diaphoresis. Will continue to monitor.
--- NOTE | 2019-04-21 17:30 | General Progress Note ---
Assessment/Plan Problem List: (1) Fever ICD Codes: R50.9 - Fever, unspecified SNOMED: 884096962 (2) Pyelonephritis ICD Codes: N12 - Tubulo-interstitial nephritis, not specified as acute or chronic SNOMED: 29647950 Status: doing well, stable Assessment/Plan: MS. Dylan Corbett is a 44 F here with pyelonephritis. #Sepsis #Right sided pyelonephritis -ID following. appreciate recs. -continue abx and f/u cultures. -Tylenol prn for fever -IV Dilaudid prn for pain #Obesity -counseling. Extra 35 mins spent on chart reivew, including labs, imaging, medications and prior physician documentation. Time of note doesn't reflect time of encounter. Subjective Date patient seen: Apr 21, 2019 Constitutional: Denies: no symptoms, chills, diaphoresis, fever, malaise, weakness, other HEENT: Denies: no symptoms, eye pain, blurred vision, tearing, double vision, ear pain, ear discharge, nose pain, nose congestion, throat pain, throat swelling, mouth pain, mouth swelling, other Cardiovascular: Denies: no symptoms, chest pain, edema, irregular heart rate, lightheadedness, palpitations, syncope, other Respiratory: Denies: no symptoms, cough, orthopnea, shortness of breath, SOB with excertion, SOB at rest, sputum, stridor, wheezing, other Gastrointestinal/Abdominal: Denies: no symptoms, abdomen distended, abdominal pain, black stools, tarry stools, blood in stool, constipated, diarrhea, difficulty swallowing, nausea, poor appetite, poor fluid intake, rectal bleeding , vomiting, other Genitourinary: Reports: frequency, flank pain Neurologic/Psychiatric: Denies: no symptoms, anxiety, depressed, emotional problems, headache, numbness, paresthesia, pre-existing deficit, seizure, tingling, tremors, weakness, other Endocrine: Denies: no symptoms, excessive sweating, flushing, intolerance to cold, intolerance to heat, increased hunger, increased thirst, increased urine, unexplained weight gain, unexplained weight loss, other Hematologic/Lymphatic: Denies: no symptoms, anemia, easy bleeding, easy bruising, other Allergies: Coded Allergies: No Known Allergies (Unverified , 04/20/19) Objective Last 24 Hour Vital Signs Date Time Temp Pulse Resp B/P (MAP) Pulse Ox O2 Delivery O2 Flow Rate FiO2 04/21/19 12:39 99.4 04/21/19 12:02 102.1 110 18 146/74 (98) 94 04/21/19 09:00 Room Air 04/21/19 08:00 98.5 105 18 147/74 (98) 95 04/21/19 04:00 99.3 95 18 107/62 (77) 96 04/21/19 00:00 102.3 110 18 140/75 (96) 96 04/20/19 21:00 Room Air 04/20/19 20:00 101.2 105 16 128/68 (88) 95 04/20/19 18:07 102.9 Intake and Output 04/20/19 04/21/19 19:00 07:00 Intake Total 1310 ml 838.2 ml Balance 1310 ml 838.2 ml Intake Oral 710 ml 200 ml IV Total 600 ml 638.2 ml # Voids 2 Laboratory Tests 04/21/19 09:00: White Blood Count 21.7H, Red Blood Count 4.14L, Hemoglobin 6.7*L, Hematocrit 23.6L, Mean Corpuscular Volume 57L, Mean Corpuscular Hemoglobin 16.2L, Mean Corpuscular Hemoglobin Concent 28.4L, Red Cell Distribution Width 15.7H, Platelet Count 318, Mean Platelet Volume 5.8L, Neutrophils (%) (Auto) , Lymphocytes (%) (Auto) , Monocytes (%) (Auto) , Eosinophils (%) (Auto) , Basophils (%) (Auto) , Differential Total Cells Counted 100, Neutrophils % ( Manual) 80H, Lymphocytes % (Manual) 14L, Monocytes % (Manual) 5, Eosinophils % ( Manual) 1, Basophils % (Manual) 0, Band Neutrophils 0, Platelet Estimate Adequate, Platelet Morphology Normal, Polychromasia 1+, Hypochromasia 2+, Anisocytosis 1+, Microcytosis 2+, Sodium Level 135L, Potassium Level 4.0, Chloride Level 100, Carbon Dioxide Level 23, Anion Gap 12, Blood Urea Nitrogen 6L, Creatinine 0.7, Estimat Glomerular Filtration Rate > 60, Glucose Level 333#H , Calcium Level 8.0L, Random Amikacin Level < 2.0 Height (Feet): 4 Height (Inches): 11.00 Weight (Pounds): 158 General Appearance: no apparent distress, alert Neck: supple Cardiovascular: normal rate, regular rhythm Respiratory/Chest: lungs clear, normal breath sounds, no respiratory distress Abdomen: non tender, soft Neurologic: alert, oriented x 3 Lori Hernandez M.D. Apr 21, 2019 17:30
--- NOTE | 2019-04-21 19:10 | NUR ---
HAND-OFF: Report given to Jorden SAUCEDA, rounds made. Patient stable, blood almost completely flushed through tubing (blood bag empty), NS infusing at 50 ml/hr. Endorsed once blood is infused from tubing, then discontinue, obtain VS and return blood bag, tubing and form to blood bank.
--- NOTE | 2019-04-21 19:20 | NUR ---
NURSE NOTES: Received report from Rossy SAUCEDA. Rounding is done. Patient is a/o x4, in bed, and able to known her need. Patient denied any pain at this time. Breathing is even and unlabored. IV site is intact and Blood is running. Bed is on alarm, locked, and lowest position. Call light within reach. Will continue to monitor.
--- NOTE | 2019-04-21 19:45 | NUR ---
NURSE NOTES: Blood transfusion is finished. VS: BP 172/90, HR 98, TEMP. 99.8, O2 98. No c/o pain at this time. No adverse effects noted at this time. Will notify to Primary DR and continue to monitor.
--- NOTE | 2019-04-21 19:50 | NUR ---
NURSE NOTES: Called to Dr. Farley and left message regarding VS after blood transfusion.
--- NOTE | 2019-04-21 20:50 | NUR ---
NURSE NOTES: Got order from DR. Hardwick covering Dr. Farley and carried out. Rechecked VS: BP 135/69, HR 102, Temp. 101.8, O2 97% on room air. Given Tylenol for fever. Will continue to monitor.
[2019-04-21] MEDS: Amikacin 800 MG in NS 110 ML IV SCH (21:29)
--- NOTE | 2019-04-21 23:12 | Consultation ---
History of Present Illness General Chief Complaint: Fever Present Illness Allergies: Coded Allergies: No Known Allergies (Unverified , 04/20/19) Medication History Scheduled Cephalexin* (Keflex*), 500 MG ORAL EVERY 6 HOURS Scheduled PRN Ibuprofen* (Motrin*), 600 MG ORAL Q8H PRN for For Pain Patient History Healthcare decision maker Resuscitation status Full Code Advanced Directive on File No Physical Exam Last 24 Hour Vital Signs Date Time Temp Pulse Resp B/P (MAP) Pulse Ox O2 Delivery O2 Flow Rate FiO2 04/21/19 21:20 100.5 04/21/19 16:00 99.0 88 16 130/68 (88) 98 04/21/19 14:57 99.3 98 18 131/70 (90) 100 04/21/19 14:38 98.4 101 16 134/73 (93) 96 04/21/19 14:00 99.4 04/21/19 12:02 102.1 110 18 146/74 (98) 94 04/21/19 09:00 Room Air 04/21/19 08:00 98.5 105 18 147/74 (98) 95 04/21/19 04:00 99.3 95 18 107/62 (77) 96 04/21/19 00:00 102.3 110 18 140/75 (96) 96 Intake and Output 04/20/19 04/21/19 19:00 07:00 Intake Total 1310 ml 838.2 ml Balance 1310 ml 838.2 ml Intake Oral 710 ml 200 ml IV Total 600 ml 638.2 ml # Voids 2 Laboratory Tests Test 04/21/19 09:00 White Blood Count 21.7 K/UL (4.8-10.8) H Red Blood Count 4.14 M/UL (4.20-5.40) L Hemoglobin 6.7 G/DL (12.0-16.0) *L Hematocrit 23.6 % (37.0-47.0) L Mean Corpuscular Volume 57 FL (80-99) L Mean Corpuscular Hemoglobin 16.2 PG (27.0-31.0) L Mean Corpuscular Hemoglobin Concent 28.4 G/DL (32.0-36.0) L Red Cell Distribution Width 15.7 % (11.6-14.8) H Platelet Count 318 K/UL (150-450) Mean Platelet Volume 5.8 FL (6.5-10.1) L Neutrophils (%) (Auto) % (45.0-75.0) Lymphocytes (%) (Auto) % (20.0-45.0) Monocytes (%) (Auto) % (1.0-10.0) Eosinophils (%) (Auto) % (0.0-3.0) Basophils (%) (Auto) % (0.0-2.0) Differential Total Cells Counted 100 Neutrophils % (Manual) 80 % (45-75) H Lymphocytes % (Manual) 14 % (20-45) L Monocytes % (Manual) 5 % (1-10) Eosinophils % (Manual) 1 % (0-3) Basophils % (Manual) 0 % (0-2) Band Neutrophils 0 % (0-8) Platelet Estimate Adequate Platelet Morphology Normal Polychromasia 1+ Hypochromasia 2+ Anisocytosis 1+ Microcytosis 2+ Sodium Level 135 MMOL/L (136-145) L Potassium Level 4.0 MMOL/L (3.5-5.1) Chloride Level 100 MMOL/L (98-107) Carbon Dioxide Level 23 MMOL/L (21-32) Anion Gap 12 mmol/L (5-15) Blood Urea Nitrogen 6 mg/dL (7-18) L Creatinine 0.7 MG/DL (0.55-1.30) Estimat Glomerular Filtration Rate > 60 mL/min (>60) Glucose Level 333 MG/DL (74-106) #H Calcium Level 8.0 MG/DL (8.5-10.1) L Random Amikacin Level < 2.0 MG/L Height (Feet): 4 Height (Inches): 11.00 Weight (Pounds): 158 Medications Current Medications Medications (Trade) Dose Ordered Sig/Aguilar Route PRN Reason Start Time Stop Time Status Last Admin Dose Admin Acetaminophen (Tylenol) 650 mg Q4H PRN ORAL fever 04/20/19 10:30 05/20/19 10:29 04/21/19 20:50 Al Hydroxide/Mg Hydroxide (Mylanta II) 30 ml Q6H PRN ORAL dyspepsia 04/20/19 10:30 05/20/19 10:29 Amikacin Protocol (Amikacin pharmacy to dose) 1 ea DAILY PRN MISC Per rx protocol 3/13/20 20:00 05/20/19 19:59 Amikacin Sulfate 800 mg/Sodium Chloride 113.2 ml @ 113.2 mls/ hr Q24H IV 04/20/19 21:30 04/27/19 21:29 04/21/19 21:29 Clonidine HCl (Catapres Tab) 0.1 mg Q8H PRN ORAL SBP>170 04/21/19 20:15 05/21/19 20:14 Dextrose (Dextrose 50%) 25 ml Q30M PRN IV Hypoglycemia 04/20/19 10:30 05/20/19 10:29 Dextrose (Dextrose 50%) 50 ml Q30M PRN IV Hypoglycemia 04/20/19 10:30 05/20/19 10:29 Diphenhydramine HCl (Benadryl) 25 mg Q6H PRN ORAL Itching/Pruritis 04/20/19 10:30 05/20/19 10:29 Docusate Sodium (Colace) 100 mg EVERY 12 HOURS ORAL 04/20/19 21:00 05/20/19 20:59 04/21/19 20:47 Heparin Sodium (Porcine) (Heparin 5000 units/ml) 5,000 units EVERY 12 HOURS SUBQ 04/20/19 21:00 06/04/19 20:59 04/21/19 20:49 Hydromorphone HCl (Dilaudid) 0.5 mg Q4H PRN IVP Moderate Pain (Pain Scale 4-6) 04/20/19 10:30 04/27/19 10:29 04/20/19 21:05 Hydromorphone HCl (Dilaudid) 1 mg Q4H PRN IVP Severe Pain (Pain Scale 7-10) 04/20/19 10:30 04/27/19 10:29 Iohexol (OMNIPAQUE-300 100ml) 100 ml NOW PRN INJ Radiology Procedure 04/20/19 08:00 04/22/19 07:54 Ondansetron HCl (Zofran) 4 mg Q6H PRN IVP Nausea & Vomiting 04/20/19 10:30 05/20/19 10:29 04/21/19 11:21 Piperacillin Sod/ Tazobactam Sod 3.375 gm/Dextrose 100 ml @ 25 mls/hr EVERY 8 HOURS IVPB 04/20/19 22:00 04/25/19 21:59 04/21/19 23:01 Sodium Chloride 1,000 ml @ 100 mls/hr Q10H IVLG 04/20/19 11:28 05/20/19 11:27 04/20/19 20:59 Assessment/Plan Assessment/Plan: Hematology Consultation Reason for Hospitalization: Pyelonephritis, sepsis REKarson MD: Carlito Alfonso RFC: SEVERE anemia, high wbc DOS: 04/21/19 ID 44 year old woman with obesity otherwise healthy who comes in with 3 days of subjective fever and low back pain. No chest pain, cough, dyspnea, sore throat. Deneis hematuria or dysuria. In ED noted to have fever 100.8 and leukocytosis 26K with left shift. CT A/P suggestive of pyelonephritis. Given ceftriaxone and referred for admission Seen by id, abx ongoing, heme consulted for worsening anemia. FHx: No premature CAD SHx: No alcohol or tobacco Allergies: Coded Allergies: No Known Allergies (Unverified , 04/20/19) Medication History Scheduled Cephalexin* (Keflex*), 500 MG ORAL EVERY 6 HOURS Scheduled PRN Ibuprofen* (Motrin*), 600 MG ORAL Q8H PRN for For Pain Patient History Healthcare decision maker MYCHAL Constitutional: Reports: fever Eye: Denies: blurred vision ENT: Denies: nose congestion, throat pain Respiratory: Denies: cough, orthopnea, shortness of breath Cardiovascular: Denies: chest pain, edema, palpitations Gastrointestinal: Denies: abdominal pain, constipation, diarrhea Genitourinary: Denies: dysuria, frequency, hematuria Musculoskeletal: Reports: back pain; Denies: joint pain Skin: Denies: rash, change in color Neurological: Denies: headache Endocrine: Denies: excessive sweating Physical Exam General Appearance: no apparent distress, alert HEENT: atraumatic, anicteric, mucous membranes moist Neck: normal alignment, supple, normal inspection Respiratory/Chest: lungs clear, normal breath sounds, no respiratory distress Cardiovascular/Chest: normal rate, regular rhythm Abdomen: non tender, soft Genitourinary/Rectal: other - Right CVAT Extremities: non-tender, normal inspection 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 --> Hgb goal >7. Transfuse prn. --> Epogen or iron at this time is not particularly indicated --> Medications have been reviewed --> low threshold for gi evaluation in case has occult + --> hgb 7.4-->6.7 # Leukocytosis/elevated white blood cell count, unspecified likely related to underlying stress reaction, smoking v more likely infection --> have reviewed peripheral smear and bandemia/neutrophilia noted --> continue antibiotics if they have been started by ID team --> monitor for resolution --> wbc trend as needed 27-->21k # Sepsis --> labs noted --> on abx as per id # Right sided pyelonephritis --> on zosyn/amikacin per Dr. Cortez # Obesity # High BS --> get A1c # Dvt ppx scds The timing of this note does not necessarily reflect the time of the patient was seen. Greatly appreciate consultation. Meek Valle MD Apr 21, 2019 23:12
[2019-04-22] VITALS: BP 122/71
[2019-04-22 04:25] VITALS: BP 142/86
--- NOTE | 2019-04-22 07:16 | NUR ---
NURSE NOTES: Report received from Jorden SAUCEDA, rounds made. Patient resting in semi-fowlers position in bed. No distress on RA, respirations even/unlabored on RA. Non-productive cough noted. Encouraged PO hydration. IVF NS at 100 ml/hr to LAC. Call light in reach, bed in lowest position, will continue to monitor.
--- NOTE | 2019-04-22 07:19 | NUR ---
HAND-OFF: Report given to Rossy SAUCEDA. Patient in stable condition.
[2019-04-22 07:20] LABS: ANION GAP 8 mmol/L (5-15); BLOOD UREA NITROGEN 5 mg/dL (7-18); CALCIUM 8.7 MG/DL (8.5-10.1); CARBON DIOXIDE 25 MMOL/L (21-32); CHLORIDE 103 MMOL/L (98-107); CREATININE 0.5 MG/DL (0.55-1.30); POTASSIUM 4.2 MMOL/L (3.5-5.1); SODIUM 136 MMOL/L (136-145)
[2019-04-22 07:29] LABS: HEMATOCRIT 27.6 % (37.0-47.0); HEMOGLOBIN 8.2 G/DL (12.0-16.0); MEAN CORPUSCULAR VOLUME 60 FL (80-99); PLATELET COUNT 312 K/UL (150-450); RED BLOOD COUNT 4.58 M/UL (4.20-5.40); RED CELL DISTRIBUTION WIDTH 21.4 % (11.6-14.8); WHITE BLOOD COUNT 11.3 K/UL (4.8-10.8)
[2019-04-22 07:46] LABS: FERRITIN 39 NG/ML (8-388); LACTATE DEHYDROGENASE 201 U/L (81-234)
[2019-04-22 08:00] VITALS: BP 145/76
[2019-04-22 08:07] LABS: % IRON SATURATION 7 % (15-50); IRON 18 ug/dL (50-175); TOTAL IRON BINDING CAPACITY 273 ug/dL (250-450)
[2019-04-22] MEDS: Heparin 5000 units/ml inj SUBQ SCH ×2 (08:52→20:40)
[2019-04-22] MEDS: Docusate 100mg cap ORAL SCH ×2 (08:52→20:35)
--- NOTE | 2019-04-22 11:41 | Hematology/Onc Progress Note ---
Assessment/Plan Assessment/Plan Assessment/Plan: # Anemia of iron deficiency, decreased ferritin count, with menstruation as potential cause --> Anemia workup has been ordered, rule out gi bleed ---> ferritin 39 --> No evidence of hemolysis is noted, peripheral smear has been reviewed. --> Hgb goal >7. Transfuse prn. --> VENOFER x 5days started --> Medications have been reviewed --> low threshold for gi evaluation in case has occult + --> hgb 7.4-->6.7-->8.2 # Leukocytosis/elevated white blood cell count, unspecified likely related to underlying stress reaction, smoking v more likely infection --> have reviewed peripheral smear and bandemia/neutrophilia noted --> continue antibiotics if they have been started by ID team --> monitor for resolution --> wbc trend as needed 27-->21k-->11.3 --> abx:zosyn # Sepsis --> labs noted --> on abx as per id # Right sided pyelonephritis --> on zosyn/amikacin per Dr. Cortez # Obesity # High BS --> get A1c # Dvt ppx heparin sq The timing of this note does not necessarily reflect the time of the patient was seen. Greatly appreciate consultation. Subjective Allergies: Coded Allergies: No Known Allergies (Unverified , 04/20/19) Subjective 04/21 on med surg, high bp this am, on zosyn, hgb 8.2 Objective Objective Current Medications Medications (Trade) Dose Ordered Sig/Aguilar Route PRN Reason Start Time Stop Time Status Last Admin Dose Admin Acetaminophen (Tylenol) 650 mg Q4H PRN ORAL fever 04/20/19 10:30 05/20/19 10:29 04/21/19 20:50 Al Hydroxide/Mg Hydroxide (Mylanta II) 30 ml Q6H PRN ORAL dyspepsia 04/20/19 10:30 05/20/19 10:29 Amikacin Protocol (Amikacin pharmacy to dose) 1 ea DAILY PRN MISC Per rx protocol 04/20/19 20:00 05/20/19 19:59 Amikacin Sulfate 800 mg/Sodium Chloride 113.2 ml @ 113.2 mls/ hr Q24H IV 04/20/19 21:30 04/27/19 21:29 04/21/19 21:29 Clonidine HCl (Catapres Tab) 0.1 mg Q8H PRN ORAL SBP>170 04/21/19 20:15 05/21/19 20:14 Dextrose (Dextrose 50%) 25 ml Q30M PRN IV Hypoglycemia 04/20/19 10:30 05/20/19 10:29 Dextrose (Dextrose 50%) 50 ml Q30M PRN IV Hypoglycemia 04/20/19 10:30 05/20/19 10:29 Diphenhydramine HCl (Benadryl) 25 mg Q6H PRN ORAL Itching/Pruritis 04/20/19 10:30 05/20/19 10:29 Docusate Sodium (Colace) 100 mg EVERY 12 HOURS ORAL 04/20/19 21:00 05/20/19 20:59 04/22/19 08:52 Heparin Sodium (Porcine) (Heparin 5000 units/ml) 5,000 units EVERY 12 HOURS SUBQ 04/20/19 21:00 06/04/19 20:59 04/22/19 08:52 Hydromorphone HCl (Dilaudid) 0.5 mg Q4H PRN IVP Moderate Pain (Pain Scale 4-6) 04/20/19 10:30 04/27/19 10:29 04/20/19 21:05 Hydromorphone HCl (Dilaudid) 1 mg Q4H PRN IVP Severe Pain (Pain Scale 7-10) 04/20/19 10:30 04/27/19 10:29 Ondansetron HCl (Zofran) 4 mg Q6H PRN IVP Nausea & Vomiting 04/20/19 10:30 05/20/19 10:29 04/21/19 11:21 Piperacillin Sod/ Tazobactam Sod 3.375 gm/Dextrose 100 ml @ 25 mls/hr EVERY 8 HOURS IVPB 04/20/19 22:00 04/25/19 21:59 04/22/19 05:08 Sodium Chloride 1,000 ml @ 100 mls/hr Q10H IVLG 04/20/19 11:28 05/20/19 11:27 04/20/19 20:59 Last 24 Hour Vital Signs Date Time Temp Pulse Resp B/P (MAP) Pulse Ox O2 Delivery O2 Flow Rate FiO2 04/22/19 08:00 97.1 93 20 145/76 (99) 97 04/22/19 04:25 99.3 85 19 142/86 (104) 97 04/22/19 00:00 99.6 93 18 122/71 (88) 97 04/21/19 21:20 100.5 04/21/19 21:20 100.5 04/21/19 21:00 Room Air 04/21/19 20:50 101.8 04/21/19 20:00 99.8 98 18 172/90 (117) 98 04/21/19 16:00 99.0 88 16 130/68 (88) 98 04/21/19 14:57 99.3 98 18 131/70 (90) 100 04/21/19 14:38 98.4 101 16 134/73 (93) 96 04/21/19 14:00 99.4 04/21/19 12:02 102.1 110 18 146/74 (98) 94 04/21/19 09:00 Room Air 04/21/19 08:00 98.5 105 18 147/74 (98) 95 04/21/19 04:00 99.3 95 18 107/62 (77) 96 04/21/19 00:00 102.3 110 18 140/75 (96) 96 04/20/19 21:00 Room Air 04/20/19 20:00 101.2 105 16 128/68 (88) 95 04/20/19 18:07 102.9 04/20/19 17:15 102.5 04/20/19 16:00 102.2 100 24 140/68 (92) 94 04/20/19 13:15 102.8 04/20/19 12:02 Room Air 04/20/19 12:00 101.2 109 22 145/97 (113) 04/20/19 11:40 99.6 99 16 124/65 97 Room Air Intake and Output 04/21/19 04/22/19 19:00 07:00 Intake Total 1895 ml 1013.2 ml Balance 1895 ml 1013.2 ml Intake Oral 1120 ml 600 ml IV Total 525 ml 413.2 ml Blood Product 250 ml # Voids 2 3 Labs Test 04/20/19 07:25 04/20/19 08:27 04/20/19 08:40 04/21/19 09:00 White Blood Count 26.5 K/UL (4.8-10.8) 21.7 K/UL (4.8-10.8) Red Blood Count 4.46 M/UL (4.20-5.40) 4.14 M/UL (4.20-5.40) Hemoglobin 7.4 G/DL (12.0-16.0) 6.7 G/DL (12.0-16.0) Hematocrit 25.3 % (37.0-47.0) 23.6 % (37.0-47.0) Mean Corpuscular Volume 57 FL (80-99) 57 FL (80-99) Mean Corpuscular Hemoglobin 16.6 PG (27.0-31.0) 16.2 PG (27.0-31.0) Mean Corpuscular Hemoglobin Concent 29.2 G/DL (32.0-36.0) 28.4 G/DL (32.0-36.0) Red Cell Distribution Width 15.4 % (11.6-14.8) 15.7 % (11.6-14.8) Platelet Count 328 K/UL (150-450) 318 K/UL (150-450) Mean Platelet Volume 6.0 FL (6.5-10.1) 5.8 FL (6.5-10.1) Neutrophils (%) (Auto) % (45.0-75.0) % (45.0-75.0) Lymphocytes (%) (Auto) % (20.0-45.0) % (20.0-45.0) Monocytes (%) (Auto) % (1.0-10.0) % (1.0-10.0) Eosinophils (%) (Auto) % (0.0-3.0) % (0.0-3.0) Basophils (%) (Auto) % (0.0-2.0) % (0.0-2.0) Differential Total Cells Counted 100 100 Neutrophils % (Manual) 86 % (45-75) 80 % (45-75) Lymphocytes % (Manual) 9 % (20-45) 14 % (20-45) Monocytes % (Manual) 5 % (1-10) 5 % (1-10) Eosinophils % (Manual) 0 % (0-3) 1 % (0-3) Basophils % (Manual) 0 % (0-2) 0 % (0-2) Band Neutrophils 0 % (0-8) 0 % (0-8) Platelet Estimate Adequate Adequate Platelet Morphology Normal Normal Polychromasia 1+ 1+ Hypochromasia 2+ 2+ Anisocytosis 1+ 1+ Microcytosis 2+ 2+ Sodium Level 136 MMOL/L (136-145) 135 MMOL/L (136-145) Potassium Level 3.2 MMOL/L (3.5-5.1) 4.0 MMOL/L (3.5-5.1) Chloride Level 101 MMOL/L (98-107) 100 MMOL/L (98-107) Carbon Dioxide Level 24 MMOL/L (21-32) 23 MMOL/L (21-32) Anion Gap 11 mmol/L (5-15) 12 mmol/L (5-15) Blood Urea Nitrogen 7 mg/dL (7-18) 6 mg/dL (7-18) Creatinine 0.7 MG/DL (0.55-1.30) 0.7 MG/DL (0.55-1.30) Estimat Glomerular Filtration Rate > 60 mL/min (>60) > 60 mL/min (>60) Glucose Level 214 MG/DL (74-106) 333 MG/DL (74-106) Calcium Level 8.1 MG/DL (8.5-10.1) 8.0 MG/DL (8.5-10.1) Total Bilirubin 0.4 MG/DL (0.2-1.0) Aspartate Amino Transf (AST/SGOT) 19 U/L (15-37) Alanine Aminotransferase (ALT/SGPT) 23 U/L (12-78) Alkaline Phosphatase 117 U/L (46-116) Total Protein 7.4 G/DL (6.4-8.2) Albumin 3.0 G/DL (3.4-5.0) Globulin 4.4 g/dL Albumin/Globulin Ratio 0.7 (1.0-2.7) Urine Color Yellow Urine Appearance Slightly cloudy Urine pH 6 (4.5-8.0) Urine Specific [place] 1.015 (1.005-1.035) Urine Protein 3+ (NEGATIVE) Urine Glucose (UA) 1+ (NEGATIVE) Urine Ketones 4+ (NEGATIVE) Urine Blood 5+ (NEGATIVE) Urine Nitrite Positive (NEGATIVE) Urine Bilirubin Negative (NEGATIVE) Urine Urobilinogen 1 MG/DL (0.0-1.0) Urine Leukocyte Esterase 3+ (NEGATIVE) Urine RBC 5-10 /HPF (0 - 2) Urine WBC Tntc /HPF (0 - 2) Urine Squamous Epithelial Cells Few /LPF (NONE/OCC) Urine Bacteria Moderate /HPF (NONE) Urine Opiates Screen Negative (NEGATIVE) Urine Barbiturates Screen Negative (NEGATIVE) Phencyclidine (PCP) Screen Negative (NEGATIVE) Urine Amphetamines Screen Negative (NEGATIVE) Urine Benzodiazepines Screen Negative (NEGATIVE) Urine Cocaine Screen Negative (NEGATIVE) Urine Marijuana (THC) Screen Negative (NEGATIVE) Lactic Acid Level 1.00 mmol/L (0.4-2.0) Total Creatine Kinase 28 U/L (26-308) Creatine Kinase MB < 0.5 NG/ML (0.0-3.6) Creatine Kinase MB Relative Index Troponin I 0.000 ng/mL (0.000-0.056) Lipase 62 U/L (73-393) Random Amikacin Level < 2.0 MG/L Test 04/22/19 05:50 White Blood Count 11.3 K/UL (4.8-10.8) Red Blood Count 4.58 M/UL (4.20-5.40) Hemoglobin 8.2 G/DL (12.0-16.0) Hematocrit 27.6 % (37.0-47.0) Mean Corpuscular Volume 60 FL (80-99) Mean Corpuscular Hemoglobin 17.9 PG (27.0-31.0) Mean Corpuscular Hemoglobin Concent 29.6 G/DL (32.0-36.0) Red Cell Distribution Width 21.4 % (11.6-14.8) Platelet Count 312 K/UL (150-450) Mean Platelet Volume 6.4 FL (6.5-10.1) Neutrophils (%) (Auto) % (45.0-75.0) Lymphocytes (%) (Auto) % (20.0-45.0) Monocytes (%) (Auto) % (1.0-10.0) Eosinophils (%) (Auto) % (0.0-3.0) Basophils (%) (Auto) % (0.0-2.0) Differential Total Cells Counted 100 Neutrophils % (Manual) 70 % (45-75) Lymphocytes % (Manual) 16 % (20-45) Monocytes % (Manual) 11 % (1-10) Eosinophils % (Manual) 3 % (0-3) Basophils % (Manual) 0 % (0-2) Band Neutrophils 0 % (0-8) Platelet Estimate Adequate Platelet Morphology Normal Hypochromasia 2+ Anisocytosis 2+ Microcytosis 2+ Reticulocyte Count 1.3 % (0.5-2.0) Sodium Level 136 MMOL/L (136-145) Potassium Level 4.2 MMOL/L (3.5-5.1) Chloride Level 103 MMOL/L (98-107) Carbon Dioxide Level 25 MMOL/L (21-32) Anion Gap 8 mmol/L (5-15) Blood Urea Nitrogen 5 mg/dL (7-18) Creatinine 0.5 MG/DL (0.55-1.30) Estimat Glomerular Filtration Rate > 60 mL/min (>60) Glucose Level 231 MG/DL (74-106) Hemoglobin A1c 10.0 % (4.3-6.0) Calcium Level 8.7 MG/DL (8.5-10.1) Iron Level 18 ug/dL (50-175) Total Iron Binding Capacity 273 ug/dL (250-450) Percent Iron Saturation 7 % (15-50) Unsaturated Iron Binding 255 ug/dL (112-346) Ferritin 39 NG/ML (8-388) Lactate Dehydrogenase 201 U/L (81-234) Vitamin B12 Level 1348 PG/ML (193-986) Folate 18.2 NG/ML (8.6-58.9) Height (Feet): 4 Height (Inches): 11.00 Weight (Pounds): 158 Objective Physical Exam General Appearance: no apparent distress, alert HEENT: atraumatic, anicteric, mucous membranes moist Neck: normal alignment, supple, normal inspection Respiratory/Chest: lungs clear, normal breath sounds, no respiratory distress Cardiovascular/Chest: normal rate, regular rhythm Abdomen: non tender, soft Genitourinary/Rectal: other - Right CVAT Extremities: non-tender, normal inspection 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
[2019-04-22 12:00] VITALS: BP 148/79
[2019-04-22] MEDS ORDERED: guaiFENesin 100mg/5ml Liq ud ORAL SCH (13:30)
[2019-04-22] MEDS ORDERED: guaiFENesin 100mg/5ml Liq ud ORAL PRN (13:30)
[2019-04-22 16:00] VITALS: BP 144/93
--- NOTE | 2019-04-22 16:29 | General Progress Note ---
Assessment/Plan Problem List: (1) Fever ICD Codes: R50.9 - Fever, unspecified SNOMED: 558325569 (2) Pyelonephritis ICD Codes: N12 - Tubulo-interstitial nephritis, not specified as acute or chronic SNOMED: 19171361 Status: doing well, stable Assessment/Plan: MS. Dylan Corbett is a 44 F here with pyelonephritis. #Sepsis #Right sided pyelonephritis #Acute UTI, E. Coli. -ID following. appreciate recs. -continue abx and f/u cultures -> castillo sensitive. -will discuss abx regimen with ID and likely d/c tmrw 04/22. -Tylenol prn for fever -IV Dilaudid prn for pain #Cough Robitussin prn. #Obesity -counseling. Time spent: 36 mins, >50% on counseling, coordination of care. Time of note doesn't reflect time of encounter. Subjective Date patient seen: Apr 22, 2019 Constitutional: Denies: no symptoms, chills, diaphoresis, fever, malaise, weakness, other HEENT: Denies: no symptoms, eye pain, blurred vision, tearing, double vision, ear pain, ear discharge, nose pain, nose congestion, throat pain, throat swelling, mouth pain, mouth swelling, other Cardiovascular: Denies: no symptoms, chest pain, edema, irregular heart rate, lightheadedness, palpitations, syncope, other Respiratory: Denies: no symptoms, cough, orthopnea, shortness of breath, SOB with excertion, SOB at rest, sputum, stridor, wheezing, other Gastrointestinal/Abdominal: Denies: no symptoms, abdomen distended, abdominal pain, black stools, tarry stools, blood in stool, constipated, diarrhea, difficulty swallowing, nausea, poor appetite, poor fluid intake, rectal bleeding , vomiting, other Genitourinary: Denies: no symptoms, burning, discharge, frequency, flank pain, hematuria, incontinence, pain, urgency, other Neurologic/Psychiatric: Denies: no symptoms, anxiety, depressed, emotional problems, headache, numbness, paresthesia, pre-existing deficit, seizure, tingling, tremors, weakness, other Endocrine: Denies: no symptoms, excessive sweating, flushing, intolerance to cold, intolerance to heat, increased hunger, increased thirst, increased urine, unexplained weight gain, unexplained weight loss, other Hematologic/Lymphatic: Denies: no symptoms, anemia, easy bleeding, easy bruising, other Allergies: Coded Allergies: No Known Allergies (Unverified , 04/20/19) Subjective flank pain much improved, now only little bit of pain. no fever, chills, dysuria. Objective Last 24 Hour Vital Signs Date Time Temp Pulse Resp B/P (MAP) Pulse Ox O2 Delivery O2 Flow Rate FiO2 04/22/19 13:00 98.5 04/22/19 12:31 98.5 04/22/19 12:00 100.9 90 21 148/79 (102) 96 04/22/19 09:00 Room Air 04/22/19 08:00 97.1 93 20 145/76 (99) 97 04/22/19 04:25 99.3 85 19 142/86 (104) 97 04/22/19 00:00 99.6 93 18 122/71 (88) 97 04/21/19 21:20 100.5 04/21/19 21:00 Room Air 04/21/19 20:50 101.8 04/21/19 20:00 99.8 98 18 172/90 (117) 98 Intake and Output 04/21/19 04/22/19 19:00 07:00 Intake Total 1895 ml 1113.2 ml Balance 1895 ml 1113.2 ml Intake Oral 1120 ml 600 ml IV Total 525 ml 513.2 ml Blood Product 250 ml # Voids 2 3 Laboratory Tests 04/22/19 05:50: White Blood Count 11.3H, Red Blood Count 4.58, Hemoglobin 8.2L, Hematocrit 27.6L , Mean Corpuscular Volume 60L, Mean Corpuscular Hemoglobin 17.9L, Mean Corpuscular Hemoglobin Concent 29.6L, Red Cell Distribution Width 21.4H, Platelet Count 312, Mean Platelet Volume 6.4L, Neutrophils (%) (Auto) , Lymphocytes (%) (Auto) , Monocytes (%) (Auto) , Eosinophils (%) (Auto) , Basophils (%) (Auto) , Differential Total Cells Counted 100, Neutrophils % ( Manual) 70, Lymphocytes % (Manual) 16L, Monocytes % (Manual) 11H, Eosinophils % (Manual) 3, Basophils % (Manual) 0, Band Neutrophils 0, Platelet Estimate Adequate, Platelet Morphology Normal, Hypochromasia 2+, Anisocytosis 2+, Microcytosis 2+, Reticulocyte Count 1.3, Sodium Level 136, Potassium Level 4.2, Chloride Level 103, Carbon Dioxide Level 25, Anion Gap 8, Blood Urea Nitrogen 5L , Creatinine 0.5L, Estimat Glomerular Filtration Rate > 60, Glucose Level 231#H , Hemoglobin A1c 10.0H, Calcium Level 8.7, Iron Level 18L, Total Iron Binding Capacity 273, Percent Iron Saturation 7L, Unsaturated Iron Binding 255, Ferritin 39, Lactate Dehydrogenase 201, Carcinoembryonic Antigen [Pending], CA 125 Antigen [Pending], Vitamin B12 Level 1348H, Folate 18.2 Height (Feet): 4 Height (Inches): 11.00 Weight (Pounds): 158 General Appearance: no apparent distress, alert Neck: supple Cardiovascular: normal rate, regular rhythm Respiratory/Chest: lungs clear, normal breath sounds Abdomen: non tender, soft Lori Hernandez M.D. Apr 22, 2019 16:29
--- NOTE | 2019-04-22 18:48 | Infectious Diseases Prog Note ---
Assessment/Plan Assessment/Plan A) 1) e.coli uti/pyelonephritis 2) sepsis, fevers, leukocytosis 3) obesity 4) allergies - nkda, fh-c, mar noted, sh-negative 5) d/w RN P) 1) change abx to ceftriaxone - day # 3 abx 2) can discharge on po bactrim x 1 week if continues to improve 3) monitor labs and temps 4) will f/u 5) communicated with Dr. Hernandez Subjective Constitutional: Reports: fever, fatigue HEENT: Denies: congestion Respiratory: Denies: shortness of breath Cardiovascular: Denies: chest pain Gastrointestinal/Abdominal: Denies: nausea, vomiting, diarrhea Neurologic: Denies: headache Psychiatric: Denies: depression Skin: Denies: rash Hematologic: Denies: bleeding Musculoskeletal: Denies: pain Allergies: Coded Allergies: No Known Allergies (Unverified , 04/20/19) Objective Vital Signs Last 24 Hour Vital Signs Date Time Temp Pulse Resp B/P (MAP) Pulse Ox O2 Delivery O2 Flow Rate FiO2 04/22/19 16:00 98.4 89 21 144/93 (110) 97 04/22/19 13:00 98.5 04/22/19 12:31 98.5 04/22/19 12:00 100.9 90 21 148/79 (102) 96 04/22/19 09:00 Room Air 04/22/19 08:00 97.1 93 20 145/76 (99) 97 04/22/19 04:25 99.3 85 19 142/86 (104) 97 04/22/19 00:00 99.6 93 18 122/71 (88) 97 04/21/19 21:20 100.5 04/21/19 21:00 Room Air 04/21/19 20:50 101.8 04/21/19 20:00 99.8 98 18 172/90 (117) 98 Height (Feet): 4 Height (Inches): 11.00 Weight (Pounds): 158 General Appearance: no acute distress HEENT: normocephalic, atraumatic, anicteric, mucous membranes moist Respiratory/Chest: lungs clear, normal breath sounds, no respiratory distress, no accessory muscle use Cardiovascular: normal rate, regular rhythm, no gallop/murmur, no JVD Abdomen: normal bowel sounds, soft, non tender, no organomegaly, non distended Genitourinary: other - no miller Extremities: no cyanosis Skin: no rash Neurologic/Psychiatric: surgical first assistant II-XII grossly normal, alert, responsive Lymphatic: no neck adenopathy Musculoskeletal: no effusion Objective Microbiology Date/Time Source Procedure Growth Status 04/20/19 09:00 Blood Blood Culture - Preliminary NO GROWTH AFTER 24 HOURS Resulted 04/20/19 08:27 Urine,Clean Catch Urine Culture - Final Escherichia Coli Complete Microbiology Date/Time Source Procedure Growth Status 04/20/19 09:00 Blood Blood Culture - Preliminary NO GROWTH AFTER 24 HOURS Resulted 04/20/19 08:40 Blood Blood Culture - Preliminary NO GROWTH AFTER 24 HOURS Resulted 04/20/19 08:27 Urine,Clean Catch Urine Culture - Final Escherichia Coli Complete Laboratory Tests Test 04/22/19 05:50 White Blood Count 11.3 K/UL (4.8-10.8) H Red Blood Count 4.58 M/UL (4.20-5.40) Hemoglobin 8.2 G/DL (12.0-16.0) L Hematocrit 27.6 % (37.0-47.0) L Mean Corpuscular Volume 60 FL (80-99) L Mean Corpuscular Hemoglobin 17.9 PG (27.0-31.0) L Mean Corpuscular Hemoglobin Concent 29.6 G/DL (32.0-36.0) L Red Cell Distribution Width 21.4 % (11.6-14.8) H Platelet Count 312 K/UL (150-450) Mean Platelet Volume 6.4 FL (6.5-10.1) L Neutrophils (%) (Auto) % (45.0-75.0) Lymphocytes (%) (Auto) % (20.0-45.0) Monocytes (%) (Auto) % (1.0-10.0) Eosinophils (%) (Auto) % (0.0-3.0) Basophils (%) (Auto) % (0.0-2.0) Differential Total Cells Counted 100 Neutrophils % (Manual) 70 % (45-75) Lymphocytes % (Manual) 16 % (20-45) L Monocytes % (Manual) 11 % (1-10) H Eosinophils % (Manual) 3 % (0-3) Basophils % (Manual) 0 % (0-2) Band Neutrophils 0 % (0-8) Platelet Estimate Adequate Platelet Morphology Normal Hypochromasia 2+ Anisocytosis 2+ Microcytosis 2+ Reticulocyte Count 1.3 % (0.5-2.0) Sodium Level 136 MMOL/L (136-145) Potassium Level 4.2 MMOL/L (3.5-5.1) Chloride Level 103 MMOL/L (98-107) Carbon Dioxide Level 25 MMOL/L (21-32) Anion Gap 8 mmol/L (5-15) Blood Urea Nitrogen 5 mg/dL (7-18) L Creatinine 0.5 MG/DL (0.55-1.30) L Estimat Glomerular Filtration Rate > 60 mL/min (>60) Glucose Level 231 MG/DL (74-106) #H Hemoglobin A1c 10.0 % (4.3-6.0) H Calcium Level 8.7 MG/DL (8.5-10.1) Iron Level 18 ug/dL (50-175) L Total Iron Binding Capacity 273 ug/dL (250-450) Percent Iron Saturation 7 % (15-50) L Unsaturated Iron Binding 255 ug/dL (112-346) Ferritin 39 NG/ML (8-388) Lactate Dehydrogenase 201 U/L (81-234) Carcinoembryonic Antigen Pending [place] 125 Antigen Pending Vitamin B12 Level 1348 PG/ML (193-986) H Folate 18.2 NG/ML (8.6-58.9) Current Medications Medications (Trade) Dose Ordered Sig/Aguilar Route PRN Reason Start Time Stop Time Status Last Admin Dose Admin Acetaminophen (Tylenol) 650 mg Q4H PRN ORAL fever 04/20/19 10:30 05/20/19 10:29 04/22/19 12:01 Al Hydroxide/Mg Hydroxide (Mylanta II) 30 ml Q6H PRN ORAL dyspepsia 04/20/19 10:30 05/20/19 10:29 Amikacin Protocol (Amikacin pharmacy to dose) 1 ea DAILY PRN MISC Per rx protocol 04/20/19 20:00 05/20/19 19:59 Amikacin Sulfate 800 mg/Sodium Chloride 113.2 ml @ 113.2 mls/ hr Q24H IV 04/20/19 21:30 04/27/19 21:29 04/21/19 21:29 Clonidine HCl (Catapres Tab) 0.1 mg Q8H PRN ORAL SBP>170 04/21/19 20:15 05/21/19 20:14 Dextrose (Dextrose 50%) 25 ml Q30M PRN IV Hypoglycemia 04/20/19 10:30 05/20/19 10:29 Dextrose (Dextrose 50%) 50 ml Q30M PRN IV Hypoglycemia 04/20/19 10:30 05/20/19 10:29 Diphenhydramine HCl (Benadryl) 25 mg Q6H PRN ORAL Itching/Pruritis 04/20/19 10:30 05/20/19 10:29 Docusate Sodium (Colace) 100 mg EVERY 12 HOURS ORAL 04/20/19 21:00 05/20/19 20:59 04/22/19 08:52 Guaifenesin (Robitussin) 200 mg Q4H PRN ORAL For Cough 04/22/19 13:30 05/22/19 13:29 Heparin Sodium (Porcine) (Heparin 5000 units/ml) 5,000 units EVERY 12 HOURS SUBQ 04/20/19 21:00 06/04/19 20:59 04/22/19 08:52 Hydromorphone HCl (Dilaudid) 0.5 mg Q4H PRN IVP Moderate Pain (Pain Scale 4-6) 04/20/19 10:30 04/27/19 10:29 04/20/19 21:05 Hydromorphone HCl (Dilaudid) 1 mg Q4H PRN IVP Severe Pain (Pain Scale 7-10) 04/20/19 10:30 04/27/19 10:29 Ondansetron HCl (Zofran) 4 mg Q6H PRN IVP Nausea & Vomiting 04/20/19 10:30 05/20/19 10:29 04/21/19 11:21 Piperacillin Sod/ Tazobactam Sod 3.375 gm/Dextrose 100 ml @ 25 mls/hr EVERY 8 HOURS IVPB 04/20/19 22:00 04/25/19 21:59 04/22/19 14:07 Sodium Chloride 1,000 ml @ 100 mls/hr Q10H IVLG 04/20/19 11:28 05/20/19 11:27 3/15/20 12:00 Alkasspooles,Salam MD Apr 22, 2019 18:48
--- NOTE | 2019-04-22 19:40 | NUR ---
HAND-OFF: Report given to Camille SAUCEDA, rounds made. Patient stable.
[2019-04-22 20:00] VITALS: BP 154/87
--- NOTE | 2019-04-22 20:00 | NUR ---
NURSE NOTES: Report received from Rossy SAUCEDA, rounds made. Patient resting in semi-fowlers position in bed. No distress on RA, respirations even/unlabored on RA. Non-productive cough noted. IVF NS at 100 ml/hr to LAC but IV is saying occluded. will reinsert new IV. is at bedside with patient. Call light in reach, bed in lowest position, will continue to monitor.
[2019-04-22] MEDS: guaiFENesin 100mg/5ml Liq ud ORAL PRN (20:45)
[2019-04-22] MEDS ORDERED: cefTRIAXone 1 GM in D5W 50 ML IVPB SCH (21:00)
--- NOTE | 2019-04-22 21:30 | NUR ---
NURSE NOTES: Gave tylenol and pt fever has not gone down. Went from 100.4 to 100.8 after tylenol. Pt said she had extremely high fevers when she came in but could not recall how high- "much higher than 101"
--- NOTE | 2019-04-22 22:00 | NUR ---
NURSE NOTES: Applied cooling measures and temp dropped to 99.6
[2019-04-22] MEDS ORDERED: Iron Sucrose 100 MG in NS 55 ML IV SCH (23:00)
[2019-04-23] VITALS: BP 144/81
[2019-04-23 04:00] VITALS: BP 124/63
[2019-04-23 06:43] LABS: ANION GAP 12 mmol/L (5-15); BLOOD UREA NITROGEN 4 mg/dL (7-18); CALCIUM 8.6 MG/DL (8.5-10.1); CARBON DIOXIDE 23 MMOL/L (21-32); CHLORIDE 101 MMOL/L (98-107); CREATININE 0.6 MG/DL (0.55-1.30); POTASSIUM 3.9 MMOL/L (3.5-5.1); SODIUM 136 MMOL/L (136-145)
[2019-04-23 06:48] LABS: BASOPHILS % (AUTO) 1.5 % (0.0-2.0); EOSINOPHILS % (AUTO) 5.1 % (0.0-3.0); HEMATOCRIT 28.8 % (37.0-47.0); HEMOGLOBIN 8.6 G/DL (12.0-16.0); LYMPHOCYTES % (AUTO) 20.6 % (20.0-45.0); MEAN CORPUSCULAR VOLUME 60 FL (80-99); MONOCYTES % (AUTO) 11.6 % (1.0-10.0); NEUTROPHILS % (AUTO) 61.2 % (45.0-75.0); PLATELET COUNT 354 K/UL (150-450); RED BLOOD COUNT 4.79 M/UL (4.20-5.40); RED CELL DISTRIBUTION WIDTH 20.8 % (11.6-14.8); WHITE BLOOD COUNT 10.3 K/UL (4.8-10.8)
--- NOTE | 2019-04-23 07:28 | NUR ---
HAND-OFF: Report given to KOMAL Simpson.
[2019-04-23 08:00] VITALS: BP 130/63
[2019-04-23] MEDS: Docusate 100mg cap ORAL SCH (08:45)
[2019-04-23] MEDS: Heparin 5000 units/ml inj SUBQ SCH (08:47)
[2019-04-23] MEDS: guaiFENesin 100mg/5ml Liq ud ORAL PRN ×2 (08:52→12:51)
--- NOTE | 2019-04-23 10:29 | NUR ---
NURSE NOTES: pt awake alert, no distress. ambulatory. no c/o pain. has dry cough. robitussin prn given. call light within reach. will monitor.
[2019-04-23 12:00] VITALS: BP 155/85
--- NOTE | 2019-04-23 12:17 | NUR ---
NURSE NOTES: relayed to md re cough and if any swab needed, md spoke w pt , pt to be discharged.
[2019-04-23 16:00] VITALS: BP 140/85
--- NOTE | 2019-04-23 16:56 | General Progress Note ---
Assessment/Plan Problem List: (1) Fever ICD Codes: R50.9 - Fever, unspecified SNOMED: 173235430 (2) Pyelonephritis ICD Codes: N12 - Tubulo-interstitial nephritis, not specified as acute or chronic SNOMED: [id number] Status: doing well, stable Assessment/Plan: MS. Dylan Corbett is a 44 F here with pyelonephritis. #Sepsis #Right sided pyelonephritis #Acute UTI, E. Coli. -ID following. appreciate recs. -continue abx and f/u cultures -> castillo sensitive. -per ID, can be d/c'ed with 1 week of bactrim. -Tylenol prn for fever -IV Dilaudid prn for pain #Cough #Low grade fever Robitussin prn. -continue to monitor. #Obesity -counseling. Time spent: 36 mins, >50% on counseling, coordination of care. Time of note doesn't reflect time of encounter. Subjective Date patient seen: Apr 23, 2019 Constitutional: Denies: no symptoms, chills, diaphoresis, fever, malaise, weakness, other HEENT: Denies: no symptoms, eye pain, blurred vision, tearing, double vision, ear pain, ear discharge, nose pain, nose congestion, throat pain, throat swelling, mouth pain, mouth swelling, other Cardiovascular: Denies: no symptoms, chest pain, edema, irregular heart rate, lightheadedness, palpitations, syncope, other Respiratory: Reports: cough Gastrointestinal/Abdominal: Denies: no symptoms, abdomen distended, abdominal pain, black stools, tarry stools, blood in stool, constipated, diarrhea, difficulty swallowing, nausea, poor appetite, poor fluid intake, rectal bleeding , vomiting, other Genitourinary: Denies: no symptoms, burning, discharge, frequency, flank pain, hematuria, incontinence, pain, urgency, other Neurologic/Psychiatric: Denies: no symptoms, anxiety, depressed, emotional problems, headache, numbness, paresthesia, pre-existing deficit, seizure, tingling, tremors, weakness, other Endocrine: Denies: no symptoms, excessive sweating, flushing, intolerance to cold, intolerance to heat, increased hunger, increased thirst, increased urine, unexplained weight gain, unexplained weight loss, other Hematologic/Lymphatic: Denies: no symptoms, anemia, easy bleeding, easy bruising, other Allergies: Coded Allergies: No Known Allergies (Unverified , 04/20/19) Subjective flank pain now almost resolved, but now coughing, which is more of an issue. Objective Last 24 Hour Vital Signs Date Time Temp Pulse Resp B/P (MAP) Pulse Ox O2 Delivery O2 Flow Rate FiO2 04/23/19 13:22 99.0 04/23/19 13:22 99.0 04/23/19 12:00 100.3 80 19 155/85 (108) 96 04/23/19 09:00 Room Air 04/23/19 08:00 99.3 80 19 130/63 (85) 96 04/23/19 06:06 98.7 04/23/19 04:00 99.3 83 19 124/63 (83) 96 04/23/19 00:00 99.3 91 18 144/81 (102) 96 04/22/19 21:20 100.8 04/22/19 21:00 Room Air 04/22/19 20:00 100.4 96 18 154/87 (109) 97 Intake and Output 04/22/19 04/23/19 19:00 07:00 Intake Total 940 ml 780 ml Balance 940 ml 780 ml Intake Oral 840 ml 480 ml IV Total 100 ml 300 ml # Voids 3 3 Laboratory Tests 04/23/19 05:30: White Blood Count 10.3, Red Blood Count 4.79, Hemoglobin 8.6L, Hematocrit 28.8L , Mean Corpuscular Volume 60L, Mean Corpuscular Hemoglobin 18.1L, Mean Corpuscular Hemoglobin Concent 30.0L, Red Cell Distribution Width 20.8H, Platelet Count 354, Mean Platelet Volume 6.1L, Neutrophils (%) (Auto) 61.2, Lymphocytes (%) (Auto) 20.6, Monocytes (%) (Auto) 11.6H, Eosinophils (%) (Auto) 5.1H, Basophils (%) (Auto) 1.5, Sodium Level 136, Potassium Level 3.9, Chloride Level 101, Carbon Dioxide Level 23, Anion Gap 12, Blood Urea Nitrogen 4L, Creatinine 0.6, Estimat Glomerular Filtration Rate > 60, Glucose Level 210H, Calcium Level 8.6 Height (Feet): 4 Height (Inches): 11.00 Weight (Pounds): 158 General Appearance: no apparent distress, alert Neck: supple Cardiovascular: normal rate, regular rhythm Respiratory/Chest: lungs clear, normal breath sounds Abdomen: non tender, soft Lori Hernandez M.D. Apr 23, 2019 16:56
--- NOTE | 2019-04-23 17:08 | Discharge Summary ---
Discharge Summary Hospital Course Date of Admission Apr 20, 2019 at 11:04 Date of Discharge 04/23/2019 Admitting Diagnosis anemia, leukocytosis HPI Medina June Corbett is a 44 year old female who was admitted on Apr 20, 2019 at 11:04 for Anemia/Leukocytosis Consultations ID Hospital Course MS. Dylan Corbett is a 44 F here with pyelonephritis. #Sepsis #Right sided pyelonephritis #Acute UTI, E. Coli. -ID following. appreciate recs. -continue abx and f/u cultures -> castillo sensitive. -per ID, can be d/c'ed with 1 week of bactrim. -Tylenol prn for fever -IV Dilaudid prn for pain #Cough #Low grade fever Robitussin prn on d/c. -continue to monitor. #Obesity -counseling. Time of note doesn't reflect time of encounter. Discharge Condition Upon Discharge: improving, stable Discharge Vital Signs Last Vital Signs Date Time Temp Pulse Resp B/P (MAP) Pulse Ox O2 Delivery O2 Flow Rate FiO2 04/23/19 16:00 99.0 80 19 140/85 (103) 96 04/23/19 09:00 Room Air Discharge Disposition Patient was discharged to Discharge Diagnoses: (1) Fever (2) Pyelonephritis Lori Hernandez M.D. Apr 23, 2019 17:08
[2019-04-23] MEDS ORDERED: NS Irrig 1000ml ONE (17:23)
[2019-04-23] MEDS ORDERED: Tubing IV Secondary IV ONE (17:23)
[2019-04-23] MEDS ORDERED: Tubing IV Blood Pump IV ONE (17:23)
[2019-04-23] MEDS ORDERED: NS 500ML ONE (17:23)
--- NOTE | 2019-04-23 17:24 | NUR ---
NURSE NOTES: PT LEFT IN STABLE CONDITION W ALL BELONGINGS. IV REMOVED FROM LEFT AC TOLERATED WELL NO BLEEDING. ARM BAND REMOVED. PT REFUSED FLU VACCINE. Addendum: 04/23/19 at 1725 by MEHNAZ GARCIA RN DC INSTRUCTIONS RENDERED W VERBALIZED UNDERSTANDING. PT HAS BACTRIM AND ROBITUSSIN MEDICATION
--- NOTE | 2019-05-02 16:17 | NUR ---
CASE MANAGEMENT: INITIAL REVIEW 44YR OLD FEMALE FROM HOME CC: FEVER; BODY ACHES SI:PYELONEPHRITIS 100.7 120 16 125/60 95% ON RA WBC 26.5 H/H 7.4/25.3 K+3.2 BG 214 CA+ 8.1 ALKP 117 IS:IVF NS BOLUS X1 IV ROCEPHIN X1 TYLENOL PO X1 CHEST X-RAY- NO ACUTE FINDINGS CT ABD/PEL- Abnormal left kidney. Pyelonephritis suspected \: [facility] SURG UNIT PLAN: POSSIBLE BLOOD TX CASE MANAGEMENT: REVIEW SI:SEPSIS . RIGHT SIDE PYELONEPHRITIS 102.1 110 18 146/74 94% ON RA WBC 26.5 H/H 7.4/25.3 K+3.2 BG 214 CA+ 8.1 ALKP 117 IS:PO K-DUR X1 IV ROCEPHIN Q24 IV ZOSYN Q8HR IV AMIKACIN Q24 IV VENOFER QHS X5 BAGS ROBITUSSIN Q4/PRN HEPARIN SQ BID \: [facility] SURG UNIT PLAN: BLOOD TRANSFUSE X1
== END 2019-04-23 17:24 | disposition home or self-care (01) | DRG 720 ==
LOC: EMR 06:47 → EDBEDREQ 08:23 → 3E 11:04
PROC: 30233N1 Transfusion of Nonautologous Red Blood Cells into Peripheral Vein, Percutaneous Approach (ICD-10-PCS; principal; 2019-04-21)
DX: A41.9 Sepsis, unspecified organism (principal); N39.0 Urinary tract infection, site not specified; B96.20 Unspecified Escherichia coli [E. coli] as the cause of diseases classified elsewhere; E66.9 Obesity, unspecified; D63.8 Anemia in other chronic diseases classified elsewhere; N12 Tubulo-interstitial nephritis, not specified as acute or chronic
CPT/HCPCS: 36415; 71045; 74177; 80048; 80053; 80150; 80307; 81003; 82378; 82550; 82553; 82607; 82728; 82746; 83036; 83540; 83550; 83605; 83615; 83690; 84484; 85007; 85025; 85044; 85060; 86304; 86850; 86900; 86901; 86920; 87040; 87086; 87181; 96360; 99285; J2405; J7030; J8499

== ENCOUNTER 2019-09-19 13:52 | Emergency (ER) | payer MEDICAID ==
[~2019-09-19] VITALS: Ht 154.9 cm; Wt 81.6 kg
--- NOTE | 2019-09-19 14:48 | Emergency Room Report ---
History of Present Illness General Chief Complaint: Skin Rash/Abscess Source: Patient Present Illness HPI 44-year-old female with history of type 2 diabetes currently taking metformin here complaining of a painful side of forehead on the lateral side x2 days. Denies any pus drainage. Denies fever and chills, pain radiation, generalized swelling. Denies tingling and numbness. Denies any fall or injury. Denies dizziness, blurry vision, no other associated symptoms. Has not taken medication for symptom relief. Denies . Allergies: Coded Allergies: No Known Allergies (Unverified , 04/20/19) COVID-19 Screening Contact w/high risk pt: No Experienced COVID-19 symptoms?: No COVID-19 Testing performed SATIN FINISHER: No Patient History Past Medical History: see triage record Past Surgical History: none Pertinent Family History: none Now: No Immunizations: UTD Reviewed Nursing Documentation: PMH: Agreed; PSxH: Agreed Nursing Documentation-PMH Past Medical History: No History, Except For Hx Diabetes: Yes - unmedicated Review of Systems All Other Systems: negative except mentioned in HPI Physical Exam Vital Signs Date Time Temp Pulse Resp B/P (MAP) Pulse Ox O2 Delivery O2 Flow Rate FiO2 09/19/19 14:37 98.4 81 19 138/77 (97) 98 Room Air Sp02 EP Interpretation: reviewed, normal General Appearance: no apparent distress, alert, GCS 15, non-toxic Head: normocephalic, atraumatic Eyes: bilateral eye normal inspection, bilateral eye PERRL ENT: hearing grossly normal, normal pharynx, no angioedema, normal voice Neck: full range of motion, supple/symm/no masses Respiratory: chest non-tender, lungs clear, normal breath sounds, no rhonchi, no respiratory distress, no retraction, no wheezing, speaking full sentences Cardiovascular #1: regular rate, rhythm, no edema, no murmur Gastrointestinal: non tender, soft Rectal: deferred Genitourinary: no CVA tenderness Musculoskeletal: back normal Neurologic: alert, motor strength/tone normal, oriented x3, sensory intact, responsive, speech normal Psychiatric: judgement/insight normal, memory normal, mood/affect normal, no suicidal/homicidal ideation Skin: rash - Folliculitis noted right forehead Lymphatic: no adenopathy Medical Decision Making PA Attestation All diagnoses and treatment plans were reviewed and discussed with my supervising physician Dr. Acosta Diagnostic Impression: Primary Impression: Folliculitis ER Course 44-year-old female with history of type 2 diabetes currently taking metformin here complaining of a painful side of forehead on the lateral side x2 days. Denies any pus drainage. Denies fever and chills, pain radiation, generalized swelling. Denies tingling and numbness. Denies any fall or injury. Denies dizziness, blurry vision, no other associated symptoms. Has not taken medication for symptom relief. Denies . Ddx considered but are not limited to : Cellulitis, folliculitis, superficial infection, abscess Vital signs: are WNL, pt. is afebrile H&PE are most consistent with: Folliculitis ORDERS: Keflex Motkallie, ED INTERVENTIONS: None required at this time. DISCHARGE: At this time pt. is stable for d/c to home. Will provide printed patient care instructions, and any necessary prescriptions. Care plan and follow up instructions have been discussed with the patient prior to discharge. Patient take medication as directed, follow primary care provider, if worsening symptoms return to emergency room Last Vital Signs Date Time Temp Pulse Resp B/P (MAP) Pulse Ox O2 Delivery O2 Flow Rate FiO2 09/19/19 14:37 98.4 81 19 138/77 (97) 98 Room Air Disposition: HOME, SELF-CARE Condition: Stable Scripts Ibuprofen* (MOTRIN*) 400 Mg Tablet 400 MG ORAL Q6H, #30 TAB 0 Refills Prov: Yamileth Khan 09/19/19 Cephalexin* (KEFLEX*) 500 Mg Capsule 500 MG ORAL EVERY 8 HOURS for 7 Days, #21 CAP 0 Refills Prov: Yamileth Khan 09/19/19 Patient Instructions: Folliculitis Additional Instructions: Take medication as directed, follow primary care provider, if worsening symptoms return to the emergency room Yamileth Khan Sep 19, 2019 14:48
[2019-09-19] MEDS ORDERED: IBUPROFEN400 MG ORAL (14:49)
[2019-09-19] MEDS ORDERED: CEPHALEXIN500 MG ORAL (14:49)
[2019-09-19 19:17] VITALS: BP 138/77
== END 2019-09-19 15:00 | disposition home or self-care (01) ==
LOC: EMR 14:50
DX: L73.9 Follicular disorder, unspecified (principal); E11.9 Type 2 diabetes mellitus without complications; Z79.84 Long term (current) use of oral hypoglycemic drugs
CPT/HCPCS: 99282

== ENCOUNTER 2019-11-29 13:19 | Emergency (ER) | payer MEDICAID ==
[~2019-11-29] VITALS: Ht 152.4 cm; Wt 81.6 kg
[~2019-11-29 13:19] MED LIST changes: +IBUPROFEN400 MG ORAL
[2019-11-29 13:30] VITALS: BP 143/77
--- NOTE | 2019-11-29 13:40 | Emergency Room Report ---
History of Present Illness General Chief Complaint: Headache Source: Patient Present Illness HPI 46-year-old female with history of recurrent folliculitis of scalp here complaining of a painful abscess on right side of scalp. Denies any fall or injury. Reports that she often gets MSG tendency of swelling in her scalp. Has not yet been seen by reference librarian. Folliculitis of the right side of scalp noted without any pus drainage. Patient complains of a 10-10 pain area. Defers other imaging or blood work. As for any injection for pain medication as well as antibiotics to go home with. Denies history of diabetes, no other associated medical conditions. Denies fever and chills, chest pain, shortness of breath, dizziness, blurry vision. Has not taken medication for symptom relief. Denies Allergies: Coded Allergies: No Known Allergies (Unverified , 04/20/19) COVID-19 Screening Contact w/high risk pt: No Experienced COVID-19 symptoms?: No COVID-19 Testing performed COMMUTATOR INSPECTOR: No Patient History Past Medical History: see triage record Past Surgical History: none Pertinent Family History: none Last Menstrual Period: na Now: No Immunizations: UTD Reviewed Nursing Documentation: PMH: Agreed; PSxH: Agreed Nursing Documentation-PMH Past Medical History: No History, Except For Hx Diabetes: Yes - unmedicated Review of Systems All Other Systems: negative except mentioned in HPI Physical Exam Vital Signs Date Time Temp Pulse Resp B/P (MAP) Pulse Ox O2 Delivery O2 Flow Rate FiO2 11/29/19 13:26 98.2 83 17 143/77 (99) 99 Room Air Sp02 EP Interpretation: reviewed, normal General Appearance: no apparent distress, alert, GCS 15, non-toxic Head: normocephalic, atraumatic Eyes: bilateral eye normal inspection, bilateral eye PERRL ENT: hearing grossly normal, normal pharynx, no angioedema, normal voice Respiratory: chest non-tender, lungs clear, normal breath sounds, speaking full sentences Cardiovascular #1: regular rate, rhythm, no edema Gastrointestinal: normal bowel sounds, non tender, soft, non-distended, no guarding, no rebound Rectal: deferred Genitourinary: no CVA tenderness Musculoskeletal: back normal, non-tender, swelling - Folliculitis without abscess formation of the right side of scalp noted Neurologic: alert, motor strength/tone normal, oriented x3, sensory intact, responsive, speech normal Psychiatric: judgement/insight normal, memory normal, mood/affect normal, no suicidal/homicidal ideation Skin: other - Folliculitis right side of scalp Lymphatic: no adenopathy Medical Decision Making RACHAEL Attestation All diagnoses and treatment plans were reviewed and discussed with my supervising physician Dr. Acosta Diagnostic Impression: Primary Impression: Folliculitis ER Course 46-year-old female with history of recurrent folliculitis of scalp here complaining of a painful abscess on right side of scalp. Denies any fall or injury. Reports that she often gets MSG tendency of swelling in her scalp. Has not yet been seen by reference librarian. Folliculitis of the right side of scalp noted without any pus drainage. Patient complains of a 10-10 pain area. Defers other imaging or blood work. As for any injection for pain medication as well as antibiotics to go home with. Denies history of diabetes, no other associated medical conditions. Denies fever and chills, chest pain, shortness of breath, dizziness, blurry vision. Has not taken medication for symptom relief. Denies Ddx considered but are not limited to : Cellulitis, folliculitis, superficial infection, abscess Vital signs: are WNL, pt. is afebrile H&PE are most consistent with: Folliculitis ORDERS: Augmentin, ibuprofen 800 ED INTERVENTIONS: Toradol IM DISCHARGE: At this time pt. is stable for d/c to home. Will provide printed patient care instructions, and any necessary prescriptions. Care plan and follow up instructions have been discussed with the patient prior to discharge. Patien t take medication as directed, follow with primary care provider, follow-up with reference librarian, if worsening symptoms return to emergency room Last Vital Signs Date Time Temp Pulse Resp B/P (MAP) Pulse Ox O2 Delivery O2 Flow Rate FiO2 11/29/19 13:26 98.2 83 17 143/77 (99) 99 Room Air Disposition: HOME, SELF-CARE Condition: Stable Scripts Hydrocortisone/Aloe (Hydrocortisone/Aloe 1% Cream*) Y Cr 1 APPLIC TOPIC Q6H PRN for Itching, #30 GM Prov: Yamileth Khan 11/29/19 Ibuprofen (Ibu) 800 Mg Tablet 800 MG PO TID, #30 TAB Prov: Yamileth Khan 11/29/19 Amoxicillin/Potassium Clav 875-125* (AUGMENTIN 875-125 TABLET*) 1 Each Tablet 1 TAB ORAL TWICE A DAY for 7 Days, #14 TAB Prov: Yamileth Khan 11/29/19 Patient Instructions: Folliculitis Additional Instructions: Take medication as directed, follow-up with your primary care provider, avoid putting pressure on the affected area, if worsening symptoms return to the emerg ency room Yamileth Khan Nov 29, 2019 13:40
[2019-11-29] MEDS ORDERED: HYDROCORTISONE-30 GM TOPIC (13:41)
[2019-11-29] MEDS ORDERED: IBU800 MG PO (13:41)
[2019-11-29] MEDS ORDERED: AUGMENTIN 875-1 EAC1 ORAL (13:41)
[2019-11-29] MEDS ORDERED: Ketorolac 30mg Inj IM ONE (13:45)
[2019-11-29 13:56] VITALS: BP 143/77
== END 2019-11-29 13:55 | disposition home or self-care (01) ==
LOC: EMR 13:39
DX: L73.9 Follicular disorder, unspecified (principal); E11.9 Type 2 diabetes mellitus without complications
CPT/HCPCS: 96372; J1885; Z7502; 99283

== ENCOUNTER 2020-04-01 15:36 | Emergency (ER) | payer MEDICAID ==
[~2020-04-01] VITALS: Ht 154.9 cm; Wt 68.0 kg
[~2020-04-01 15:36] MED LIST changes: +AUGMENTIN 875-1 EAC1 ORAL; +HYDROCORTISONE-30 GM TOPIC; +IBU800 MG PO
--- NOTE | 2020-04-01 15:49 | NUR ---
ED Nurse Note: Pt unable to urinate at this time.
--- NOTE | 2020-04-01 15:56 | Emergency Room Report ---
History of Present Illness General Chief Complaint: Abdominal Pain Source: Patient Present Illness HPI Patient is a 45-year-old female denies any significant past medical history who presents to the ER complaining of abdominal pain and watery diarrhea for the past 2 days. She states it started after eating some pork tacos. She denies any fever or chills. She denies any nausea or vomiting. She denies any dysuria or hematuria. She denies any chest pain, shortness of breath or cough. She denies any other sick contacts at home. Allergies: Coded Allergies: No Known Allergies (Unverified , 04/20/19) COVID-19 Screening Contact w/high risk pt: No Experienced COVID-19 symptoms?: No COVID-19 Testing performed SENIOR ASSISTANT MANAGER: No Patient History Reviewed Nursing Documentation: PMH: Agreed; PSxH: Agreed Nursing Documentation-PMH Past Medical History: No History, Except For Hx Diabetes: Yes - unmedicated Review of Systems All Other Systems: negative except mentioned in HPI Physical Exam Vital Signs Date Time Temp Pulse Resp B/P (MAP) Pulse Ox O2 Delivery O2 Flow Rate FiO2 04/01/20 15:41 98.6 100 20 151/94 (113) 96 Room Air Sp02 EP Interpretation: reviewed, normal General Appearance: alert, GCS 15, non-toxic, mild distress Head: normocephalic, atraumatic Eyes: bilateral eye normal inspection, bilateral eye PERRL ENT: hearing grossly normal, normal pharynx, no angioedema, normal voice Neck: full range of motion, supple/symm/no masses Respiratory: chest non-tender, lungs clear, normal breath sounds, speaking full sentences Cardiovascular #1: tachycardia Gastrointestinal: other - Periumbilical tenderness to palpation no guarding or rebound soft obese abdomen Rectal: deferred Genitourinary: no CVA tenderness Musculoskeletal: normal range of motion Neurologic: greenhouse grower III-XII nml as tested, oriented x3 Psychiatric: no suicidal/homicidal ideation Skin: no rash Lymphatic: no adenopathy Medical Decision Making Diagnostic Impression: Primary Impression: Colitis Additional Impressions: UTI (urinary tract infection) Hypokalemia Anemia ER Course Patient's labs demonstrate anemia as well as mild hypokalemia. Patient given oral KCl. Patient CT consistent with colitis. Patient will be started on Flagyl and Cipro. Patient was given fentanyl for pain control. On reevaluation she states that her pain has resolved. After discussing risks and benefits of further diagnostics, treatment plans, as well as indications for and risks of admission, the patient is agreeable to being discharged home. I have explained that their evaluation and treatment in the emergency department today is an important step towards them achieving better health but that their evaluation today is not intended to replace further evaluation and treatment by a physician in their local clinic. I have explained that while the current findings suggest no immediate life threatening emergency they will require further evaluation and treatment by a physician of their choice in their area. They understand that it will be necessary for them to review the final reports of their ED visit with their clinic physician. We have reviewed indications for return to the Emergency Department. I have explained that additional time may need to pass and/or additional testing as an outpatient may be necessary before a definitive diagnosis can be made. They tell me they are willing to follow up as instructed within the timeframe I recommend. They appear to understand what we discussed. Additionally they understand that if they are unable to be seen by an outpatient physician they are welcome, and in fact should, return to the Emergency Department for a repeat evaluation. The patient is stable at time of discharge. Laboratory Tests Test 04/01/20 16:02 04/01/20 16:10 White Blood Count 10.6 K/UL (4.8-10.8) Red Blood Count 5.09 M/UL (4.20-5.40) Hemoglobin 10.1 G/DL (12.0-16.0) L Hematocrit 33.5 % (37.0-47.0) L Mean Corpuscular Volume 66 FL (80-99) L Mean Corpuscular Hemoglobin 19.9 PG (27.0-31.0) L Mean Corpuscular Hemoglobin Concent 30.3 G/DL (32.0-36.0) L Red Cell Distribution Width 18.6 % (11.6-14.8) H Platelet Count 426 K/UL (150-450) Mean Platelet Volume 7.4 FL (6.5-10.1) Neutrophils (%) (Auto) 71.2 % (45.0-75.0) Lymphocytes (%) (Auto) 19.8 % (20.0-45.0) L Monocytes (%) (Auto) 6.7 % (1.0-10.0) Eosinophils (%) (Auto) 0.9 % (0.0-3.0) Basophils (%) (Auto) 1.4 % (0.0-2.0) Sodium Level 137 MMOL/L (136-145) Potassium Level 3.2 MMOL/L (3.5-5.1) L Chloride Level 99 MMOL/L (98-107) Carbon Dioxide Level 27 MMOL/L (21-32) Anion Gap 12 mmol/L (5-15) Blood Urea Nitrogen 10 mg/dL (7-18) Creatinine 0.7 MG/DL (0.55-1.30) Estimated Glomerular Filtration Rate > 60 mL/min (>60) Glucose Level 302 MG/DL (74-106) H Calcium Level 8.5 MG/DL (8.5-10.1) Magnesium Level 1.9 MG/DL (1.8-2.4) Total Bilirubin 0.2 MG/DL (0.2-1.0) Aspartate Amino Transferase (AST) 15 U/L (15-37) Alanine Aminotransferase (ALT) 19 U/L (12-78) Alkaline Phosphatase 125 U/L (46-116) H Total Protein 8.1 G/DL (6.4-8.2) Albumin 3.4 G/DL (3.4-5.0) Globulin 4.7 g/dL Albumin/Globulin Ratio 0.7 (1.0-2.7) L Lipase 191 U/L (73-393) Urine Color Pale yellow Urine Appearance Slightly cloudy Urine pH 6 (4.5-8.0) Urine Specific [place] 1.015 (1.005-1.035) Urine Protein 3+ (NEGATIVE) H Urine Glucose (UA) 4+ (NEGATIVE) H Urine Ketones Negative (NEGATIVE) Urine Blood 1+ (NEGATIVE) H Urine Nitrite Negative (NEGATIVE) Urine Bilirubin Negative (NEGATIVE) Urine Urobilinogen Normal MG/DL (0.0-1.0) Urine Leukocyte Esterase 3+ (NEGATIVE) H Urine RBC 5-10 /HPF (0 - 2) H Urine WBC 10-15 /HPF (0 - 2) H Urine Squamous Epithelial Cells Moderate /LPF (NONE/OCC) H Urine Bacteria Few /HPF (NONE) Urine HCG, Qualitative Negative (NEGATIVE) Urine Opiates Screen Negative (NEGATIVE) Urine Barbiturates Screen Negative (NEGATIVE) Phencyclidine (PCP) Screen Negative (NEGATIVE) Urine Amphetamines Screen Negative (NEGATIVE) Urine Benzodiazepines Screen Negative (NEGATIVE) Urine Cocaine Screen Negative (NEGATIVE) Urine Marijuana (THC) Screen Negative (NEGATIVE) EKG Diagnostic Results Troponin ordered: No - EKG ordered for abdominal pain EKG Time: 16:03 EP Interpretation: Chelsey Saini MD Rate: normal - 94 bpm Rhythm: NSR ST Segments: no acute changes ASA given to the pt in ED: No Last Vital Signs Date Time Temp Pulse Resp B/P (MAP) Pulse Ox O2 Delivery O2 Flow Rate FiO2 04/01/20 15:41 98.6 100 20 151/94 (113) 96 Room Air Disposition: HOME, SELF-CARE Condition: Stable Scripts Metronidazole* (FLAGYL*) 500 Mg Tablet 500 MG ORAL THREE TIMES A DAY, #30 TAB Prov: Chelsey Saini M.D. 04/01/20 Ciprofloxacin Hcl* (CIPROFLOXACIN HCL*) 500 Mg Tablet 500 MG ORAL Q12H, #20 TAB 0 Refills Prov: Chelsey Saini M.D. 04/01/20 Tramadol Hcl* (ULTRAM*) 50 Mg Tablet 50 MG ORAL Q6H PRN for For Pain, #20 TAB 0 Refills Prov: Chelsey Saini M.D. 04/01/20 Referrals: NOT CHOSEN [facility]/,REFERRING (PCP) Additional Instructions: The patient was provided with discharge instructions, notified to follow-up with a primary care doctor and or specialist in the next 24-48 hours, and to return to the ED if they have worsening of their symptoms. Please note that this report is being documented using [employer] technology. This can lead to erroneous entry secondary to incorrect interpretation by the dictating instrument. Chelsey Saini M.D. Apr 01, 2020 15:56
[2020-04-01] MEDS ORDERED: fentaNYL 100 mcg/2 mL IV ONE (16:00)
[2020-04-01 16:19] LABS: BASOPHILS % (AUTO) 1.4 % (0.0-2.0); EOSINOPHILS % (AUTO) 0.9 % (0.0-3.0); HEMATOCRIT 33.5 % (37.0-47.0); HEMOGLOBIN 10.1 G/DL (12.0-16.0); LYMPHOCYTES % (AUTO) 19.8 % (20.0-45.0); MEAN CORPUSCULAR VOLUME 66 FL (80-99); MONOCYTES % (AUTO) 6.7 % (1.0-10.0); NEUTROPHILS % (AUTO) 71.2 % (45.0-75.0); PLATELET COUNT 426 K/UL (150-450); RED BLOOD COUNT 5.09 M/UL (4.20-5.40); RED CELL DISTRIBUTION WIDTH 18.6 % (11.6-14.8); WHITE BLOOD COUNT 10.6 K/UL (4.8-10.8)
--- NOTE | 2020-04-01 16:40 | NUR ---
pt arrived for diarrhea after eating a bad taco two days ago. pt states unable to eat anything for 2 days, loose stools. pt denies vomiting. pt denies cough/fever.
[2020-04-01 16:48] LABS: APPEARANCE,URINE SLIGHTLY CLOUDY; BILIRUBIN, URINE NEGATIVE (NEGATIVE); COLOR,URINE PALE YELLOW; GLUCOSE, URINE (UA) 4+ (NEGATIVE); KETONES,URINE NEGATIVE (NEGATIVE); LEUKOCYTE ESTERASE ,URINE 3+ (NEGATIVE); NITRITE,URINE NEGATIVE (NEGATIVE); PH,URINE 6 (4.5-8.0); PROTEIN,URINE 3+ (NEGATIVE); UROBILINOGEN,URINE NORMAL MG/DL (0.0-1.0)
[2020-04-01 16:52] LABS: ANION GAP 12 mmol/L (5-15); BLOOD UREA NITROGEN 10 mg/dL (7-18); CALCIUM 8.5 MG/DL (8.5-10.1); CARBON DIOXIDE 27 MMOL/L (21-32); CHLORIDE 99 MMOL/L (98-107); CREATININE 0.7 MG/DL (0.55-1.30); POTASSIUM 3.2 MMOL/L (3.5-5.1); SODIUM 137 MMOL/L (136-145)
[2020-04-01 16:56] LABS: ALANINE AMINOTRANSFERASE 19 U/L (12-78); ALBUMIN 3.4 G/DL (3.4-5.0); ALBUMIN/GLOBULIN RATIO 0.7 (1.0-2.7); ALKALINE PHOSPHATASE 125 U/L (46-116); ASPARTATE AMINO TRANSFERASE 15 U/L (15-37); BILIRUBIN,TOTAL 0.2 MG/DL (0.2-1.0)
[2020-04-01] MEDS ORDERED: cefTRIAXone 1 GM in NS 55 ML IVPB ONE (17:00)
--- NOTE | 2020-04-01 17:21 | Diagnostic Imaging Report ---
EXAM: CT Abdomen and Pelvis Without Intravenous Contrast CLINICAL HISTORY: PAIN TECHNIQUE: Axial computed tomography images of the abdomen and pelvis without intravenous contrast. CTDI is 10.2 mGy and DLP is 540.4 mGy-cm. One or more of the following dose reduction techniques were used: automated exposure control, adjustment of the mA and/or kV according to patient size, use of iterative reconstruction technique. Coronal and sagittal reformatted images were created and reviewed. COMPARISON: 04/20/2019 FINDINGS: Limitations: Study limited due to lack of IV contrast. Lung bases: Unremarkable. No mass. No consolidation. ABDOMEN: Liver: Unremarkable. Gallbladder and bile ducts: Unremarkable. No calcified stones. No ductal dilation. Pancreas: Unremarkable. No ductal dilation. Spleen: Unremarkable. No splenomegaly. Adrenals: Unremarkable. No mass. Kidneys and ureters: Normal variant retroaortic left renal vein of no additional significance. No obstructing stones. No hydronephrosis. Stomach and bowel: Scattered colonic wall thickening could represent colitis involving ascending colon, descending colon, sigmoid colon and rectum. No obstruction. PELVIS: Appendix: No findings to suggest acute appendicitis. Bladder: Unremarkable. No stones. Reproductive: Unremarkable as visualized. ABDOMEN and PELVIS: Intraperitoneal space: Unremarkable. No free air. No significant fluid collection. Bones/joints: Degenerative spine findings. No acute fracture. No dislocation. Soft tissues: Unremarkable. Vasculature: See above. Lymph nodes: Unremarkable. No enlarged lymph nodes. IMPRESSION: 1. Study limited due to lack of IV contrast. 2. Scattered colonic wall thickening could represent colitis involving ascending colon, descending colon, sigmoid colon and rectum. 3. Otherwise no acute abnormality identified to account for patient presentation.
[2020-04-01] MEDS ORDERED: METRONIDAZOLE500 MG ORAL (17:26)
[2020-04-01] MEDS ORDERED: TRAMADOL HCL50 MG ORAL (17:26)
[2020-04-01] MEDS ORDERED: CIPROFLOXACIN500 M2 ORAL (17:26)
[2020-04-01] MEDS ORDERED: metroNIDAZOLE 250mg tab ORAL SCH (17:30)
--- NOTE | 2020-04-01 18:12 | NUR ---
pt states pain has gone. pt states she has a ride home.
--- NOTE | 2020-04-01 19:00 | NUR ---
pt has iv fluids finishing. pt stable. VSS. pt cleared for discharge by .
[2020-04-01 20:04] VITALS: BP 151/94
--- NOTE | 2020-04-04 14:05 | Cardiology Report ---
APPROVED REPORT EKG Measurement Heart [id number] <Conclusion> Normal sinus rhythm Normal ECG
== END 2020-04-01 19:40 | disposition home or self-care (01) ==
LOC: EMR 15:50
DX: K52.9 Noninfective gastroenteritis and colitis, unspecified (principal); N39.0 Urinary tract infection, site not specified; E87.6 Hypokalemia; D64.9 Anemia, unspecified; E11.9 Type 2 diabetes mellitus without complications
CPT/HCPCS: 36415; 74176; 80053; 80307; 81003; 81025; 83690; 83735; 85025; 87086; 93005; 96361; 96365; 96375; J0696; J3010; Z7502; 99284; J8499

== ENCOUNTER 2020-04-23 14:00 | Emergency (ER) | payer MEDICAID ==
[~2020-04-23] VITALS: Ht 157.5 cm; Wt 81.6 kg
[~2020-04-23 14:00] MED LIST changes: +CIPROFLOXACIN500 M2 ORAL; +METRONIDAZOLE500 MG ORAL; +TRAMADOL HCL50 MG ORAL
[2020-04-23] MEDS ORDERED: metFORMIN 500mg tab ORAL STA (14:22)
[2020-04-23] MEDS ORDERED: Acetaminophen 500mg (ES) tab ORAL ONE ×2 (14:30→15:15)
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
[2020-04-23 16:06] LABS: BASOPHILS % (AUTO) 1.4 % (0.0-2.0); EOSINOPHILS % (AUTO) 2.1 % (0.0-3.0); HEMATOCRIT 33.2 % (37.0-47.0); HEMOGLOBIN 9.8 G/DL (12.0-16.0); LYMPHOCYTES % (AUTO) 31.7 % (20.0-45.0); MEAN CORPUSCULAR VOLUME 67 FL (80-99); NEUTROPHILS % (AUTO) 57.7 % (45.0-75.0); PLATELET COUNT 342 K/UL (150-450); RED BLOOD COUNT 4.98 M/UL (4.20-5.40); RED CELL DISTRIBUTION WIDTH 18.7 % (11.6-14.8); WHITE BLOOD COUNT 9.5 K/UL (4.8-10.8)
[2020-04-23 16:21] LABS: ALANINE AMINOTRANSFERASE 25 U/L (12-78); ALBUMIN 3.5 G/DL (3.4-5.0); ALBUMIN/GLOBULIN RATIO 0.8 (1.0-2.7); ALKALINE PHOSPHATASE 137 U/L (46-116); ANION GAP 6 mmol/L (5-15); ASPARTATE AMINO TRANSFERASE 14 U/L (15-37); BILIRUBIN,TOTAL 0.2 MG/DL (0.2-1.0); BLOOD UREA NITROGEN 13 mg/dL (7-18); CALCIUM 8.8 MG/DL (8.5-10.1); CARBON DIOXIDE 30 MMOL/L (21-32); CHLORIDE 101 MMOL/L (98-107); CREATININE 0.7 MG/DL (0.55-1.30); POTASSIUM 3.8 MMOL/L (3.5-5.1); SODIUM 137 MMOL/L (136-145)
[2020-04-23 16:29] VITALS: BP 172/92
--- NOTE | 2020-04-23 16:52 | Diagnostic Imaging Report ---
Indication: Reason For Exam: PAIN Technique: 3 views of the cervical spine Comparison: none Findings: Bony alignment is normal. No prevertebral soft tissue swelling. No acute fractures. No dislocations. Vertebral body heights and disc spaces are preserved. Impression: Negative
--- NOTE | 2020-04-23 16:52 | Diagnostic Imaging Report ---
Indication: Chest pain Technique: One view of the chest Comparison: none Findings: Lungs and pleural spaces are clear. Heart size is normal. No significant change Impression: No acute process
[2020-04-23] MEDS ORDERED: IBUPROFEN600 M1 ORAL (18:02)
[2020-04-23] MEDS ORDERED: METFORMIN HCL1000 M1 ORAL (18:02)
== END 2020-04-23 18:10 | disposition home or self-care (01) ==
LOC: EDBD 14:00 → EMR 14:21
DX: M54.2 Cervicalgia (principal); E11.65 Type 2 diabetes mellitus with hyperglycemia; R35.8 Other polyuria; Z91.14 Patient's other noncompliance with medication regimen; R07.9 Chest pain, unspecified
CPT/HCPCS: 71045; 72040; 80053; 82962; 85025; 85610; 85730; 93005; 96360; J7030; Z7502; 99284